=== PATIENT | female | born 1990 | race Caucasian/White ===

== ENCOUNTER 2023-08-26 16:54 | Inpatient (IN) | payer OTHER, SELFPAY ==
[2023-08-26] VITALS (25 sets, daily range): BP systolic 103–133; BP diastolic 48–80; PULSE 72–107; TEMP 36.2–36.4; BMI 39.1
[2023-08-26 17:41] LABS: Basophils Percent Auto 0.3 % (0.2-1.2); Eosinophils Absolute Auto 0.1 K/mm3 (0-0.3); Eosinophils Percent Auto 0.4 % (0-4.4); Hematocrit 34.2 % (37.0-47.0); Hemoglobin 10.6 g/dL (12.0-15.0); Immature Granulocyte Percent A 0.8 % (0-0.5); Lymphocytes Absolute Auto 1.57 K/mm3 (0.9-3.2); Lymphocytes Percent Auto 12.9 % (18.3-44.2); Mean Corpuscular Hemoglobin 25.8 pg (26-34); Mean Corpuscular Volume 83.2 fl (80-100); Monocytes Absolute Auto 0.8 K/mm3 (0.1-0.6); Monocytes Percent Auto 6.7 % (2.6-8.5); Neutrophils Absolute Auto 9.6 K/mm3 (1.3-6.7); Neutrophils Percent Auto 78.9 % (45.5-73.1); Platelet Count Result 213 k/mm3 (150-375); Red Blood Count 4.11 M/mm3 (4.2-5.4); Red Cell Distribution Width 15.6 % (11.5-14.5); White Blood Count 12.2 K/mm3 (4.5-10.0)
--- NOTE | 2023-08-26 17:58 | LDADM ---
This patient, Eula Mcintyre, was admitted to Labor/Delivery/Recovery 107 on 08/26/23 at 16:54. Plans for labor, pain management and were discussed with patient. Patient/family oriented to hospital policies and general routines including ID bracelet, bed and alarms, visiting hours, pain management, procedures, bathroom and other care routines, personal items, smoking policy, room service/diet and guest tray routines, infant security routines, and visiting hours. Patient/Family are encouraged to report perceived risks to care and to ask questions if they do not understand what they are told or what they should do. See OBIX for further documentation.
[2023-08-26] MEDS: miSOPROStol 25 MCG TABLET XX (18:26)
[2023-08-26 18:47] LABS: Glucose Point of Care 108 mg/dl (65-105)
--- NOTE | 2023-08-26 22:28 | WPDANESEPP ---
Anes - Eval Pre Procedure Procedure: Labor epidural Date/Time: 08/26/23 22:28 Surgeon: Ector Preop Diagnosis: Abdominal pain with contractions Pre Op Diagnosis: Induction of Labor Patient Data Age: 33 Gender: F Height: 1.55 m Weight: 94 kg Last Vital Signs Temp 97.6 F 08/26/23 22:00 Pulse 77 08/26/23 22:15 BP 129/77 08/26/23 22:15 Allergies Allergy/AdvReac Type Severity Reaction Status Date / Time cefaclor [From [facility]] Allergy Hives Verified 08/03/23 12:37 codeine Allergy Hives Verified 08/03/23 12:37 Home Medications Medication Instructions Recorded Confirmed Type ferrous sulfate 325 mg (65 mg 325 mg PO DAILY 08/03/23 08/26/23 History iron) tablet insulin lispro 100 unit/mL 5 unit subcut HS 08/03/23 08/26/23 History subcutaneous pen (Humalog KwikPen (U-100) Insulin) prenat.vits,edgardo,wrh-rpub-djtuo 1 tablet PO DAILY 08/03/23 08/26/23 History Laboratory Tests 08/26/23 08/26/23 08/26/23 17:30 18:27 18:43 WBC 12.2 H K/mm3 (4.5-10.0) RBC 4.11 L M/mm3 (4.2-5.4) Hgb 10.6 L g/dL (12.0-15.0) Hct 34.2 L % (37.0-47.0) MCV 83.2 fl (80-100) MCH 25.8 L pg (26-34) MCHC 31.0 L g/dl (32-36) RDW 15.6 H % (11.5-14.5) Plt Count 213 k/mm3 (150-375) MPV 11.0 H fl (7.4-10.4) Immature Gran % (Auto) 0.8 H % (0-0.5) Neut % (Auto) 78.9 H % (45.5-73.1) Lymph % (Auto) 12.9 L % (18.3-44.2) [place] % (Auto) 6.7 % (2.6-8.5) Eos % (Auto) 0.4 % (0-4.4) Baso % (Auto) 0.3 % (0.2-1.2) Lymph # (Auto) 1.57 K/mm3 (0.9-3.2) [place] # (Auto) 0.8 H K/mm3 (0.1-0.6) Eos # (Auto) 0.1 K/mm3 (0-0.3) Baso # (Auto) 0.0 K/mm3 (0.0-0.1) Abs Immat Gran (auto) 0.10 H K/mm3 (0.00-0.031) Absolute Neuts (auto) 9.6 H K/mm3 (1.3-6.7) Absolute Nucleated RBC 0.0 K/mm3 (0.0-0.012) Nucleated RBC % 0.0 % (0.0-0.2) POC Capillary Glucose 108 H mg/dl (65-105) RPR Pending Blood Type A Positive Antibody Screen Negative : gestational age HCG: positive Patient hx anesthesia problems: none Family hx anesthesia problems: none Results Review: All pre-operative results and documents have been reviewed as part of the pre-operative evaluation. [facility] Past Medical History Medical History Anemia Gestational diabetes Obesity (BMI 30-39.9) Family History Family History Sibling Lymphoma Sibling Congenital heart defect Grandparent Diabetes mellitus Social History Social History Smoking status: Never smoker Second hand tobacco smoke exposure: No Substance use: never Do You Feel Safe in your Home?: Yes Lack of Transportation: No Lack of Food: Never True Current Housing: I Have Housing Concerned About Future Housing: No Difficulty Paying Gas/Electric Bills: No Difficulty Paying for Meds: No Currently Unemployed: No Education: Bachelor's Degree Difficulty w/ Childcare or Family Care: No Spiritual care concerns: No Exam Day of Procedure 08/26/23 22:28 Patient weight: obese Heart: regular rate and rhythm Lungs: clear to auscultation Airway: Mallampati scale class II
[2023-08-26] MEDS: OXYTOCIN 30 UNITS/NS 500 ML 30 UNITS/500 ML BAG 6 UNITS IV CONT (23:26)
[2023-08-26] MEDS: LACTATED RINGERS 1,000 ML 125 ML IV CONT (23:27)
[2023-08-26 23:32] LABS: Glucose Point of Care 106 mg/dl (65-105)
[2023-08-27] VITALS (242 sets, daily range): BP systolic 90–184; BP diastolic 36–166; PULSE 64–215; RESP 16; TEMP 36.2–37.6; O2SAT 86–100
[2023-08-27] MEDS: fentaNYL CITRATE INJ (*CRX) 100 MCG/2 ML VIAL 50 MCG IV PUSH ×2 (04:05→04:28)
[2023-08-27] MEDS: LACTATED RINGERS 1,000 ML 999 ML IV CONT (04:31)
[2023-08-27 04:40] LABS: Glucose Point of Care 74 mg/dl (65-105)
[2023-08-27] MEDS: LACTATED RINGERS 1,000 ML 125 ML IV CONT ×2 (05:30→10:33)
[2023-08-27 07:37] LABS: Glucose Point of Care 97 mg/dl (65-105)
[2023-08-27 09:56] LABS: Glucose Point of Care 67 mg/dl (65-105)
[2023-08-27 12:06] LABS: Glucose Point of Care 74 mg/dl (65-105)
[2023-08-27 13:41] LABS: Rapid Plasma Reagin Non-Reactive (NonReactive)
[2023-08-27 14:08] LABS: Glucose Point of Care 92 mg/dl (65-105)
[2023-08-27] MEDS: ACETAMINOPHEN 500 MG TABLET 1000 MG PO (15:19)
--- NOTE | 2023-08-27 15:32 | WPDOBADMIT ---
Obstetrics - Admit Note Admission Note: record reviewed. No pertinent additions to the history and/or any subsequent changes in the physical findings that are not consistent with the expected course of the were found. Additions to the history and/or subsequent changes in the physical findings follow. IOL GDMA-2 insulin at hs, SROM, pitocin, anticipate vaginal delivery
[2023-08-27] MEDS: miSOPROStol 200 MCG TABLET 1000 MCG RECTAL (15:51)
--- NOTE | 2023-08-27 16:02 | PM.OBPRVD ---
OB - Vaginal Delivery Note Procedure Delivery date: 08/27/23 Events: Gestational Diabetes (insulin at hs) Induction method: Per Misoprostol Protocol and Per Pitocin Protocol Delivery monitor: External FHT and Internal FHT Route of delivery: Episiotomy description: None Laceration Description: Perineal - 2nd Degree Delivery repair: vicryl Specimen: Yes Quantitative Blood Loss (ml): 350 Anesthesia type: Epidural Disposition: Floor Baby Date of : 08/27/23 Time of : 15:41 Weeks of gestation at delivery: 39 gender: Female Weight (pounds): 7 Weight (ounces): 11 presentation: vertex position: Left Occiput Anterior Placenta delivery description: Spontaneous Cord Vessel Description: 3 Vessels, Nuchal Cord, Loose (x1), Reduced and Delayed Cord Clamping score one minute: 6 score five minutes: 9 Narrative: mother and baby in stable condition
[2023-08-27] MEDS: OXYTOCIN 30 UNITS/NS 500 ML 30 UNITS/500 ML BAG 125 UNITS IV CONT (16:05)
[2023-08-27] MEDS: WITCH HAZEL 40 PADS 1 PAD TOPICAL (19:20)
[2023-08-27] MEDS: BENZOCAINE 20% AER SPR (*SP) 56 GM CAN 1 SPRAY TOPICAL (19:20)
[2023-08-27] MEDS: IBUPROFEN 600 MG TABLET PO (21:00)
[2023-08-27] MEDS: DOCUSATE SODIUM 100 MG CAPSULE PO (21:32)
--- NOTE | 2023-08-27 22:28 | OBPPTRN ---
08/27/2023 at 1936. Patient transferred to post room #292. Support person present. Oriented to unit, room, information board, rooming in, admission packet and security measures. Patient verbalizes understanding.
[2023-08-28] MEDS: IBUPROFEN 600 MG TABLET PO ×3 (04:39→19:45)
[2023-08-28 05:35] LABS: Hematocrit 28.2 % (37.0-47.0); Hemoglobin 8.5 g/dL (12.0-15.0)
[2023-08-28 08:00] VITALS: BP 104/66; PULSE 84; RESP 18; TEMP 36.7; O2SAT 100
[2023-08-28] MEDS: MULTIVIT/MIN/PREN/FOL AC/IRON TABLET 1 TAB PO (08:13)
[2023-08-28] MEDS: POLYSACCHARIDE IRON COMPLEX 150 MG CAPSULE PO (08:13)
[2023-08-28] MEDS: DOCUSATE SODIUM 100 MG CAPSULE PO (08:14)
--- NOTE | 2023-08-28 11:08 | WPDANLDPN2 ---
Anes-Prog Note L&D Date/Time: 08/28/23 11:08 Comfortable throughout: labor and delivery Neuraxial method: epidural Epidural/Spinal procedure site: clean & non-tender Neuro status: Neuro function grossly intact. Cardiovascular status: normal Respiratory status: normal Airway patency: baseline Mental status: baseline Post-Op hydration status: normal Vital Signs: Last Vital Signs Temp 36.7 C 08/28/23 08:00 Pulse 84 08/28/23 08:00 Resp 18 08/28/23 08:00 BP 104/66 08/28/23 08:00 Pulse Ox 100 08/28/23 08:00 O2 Del Method Room Air 08/27/23 06:26 Pain score (VAS): 0/10 I/O: Intake & Output 08/27/23 08/28/23 08/28/23 23:59 07:59 15:59 Intake Total 240 Output Total 625 Balance -625 240 Post-procedural complaints: none Patient feedback: Patient satisfied with anesthetic care.
--- NOTE | 2023-08-28 12:06 | PM.OBPNVD ---
OB - PN: Subj Subjective Date/time seen: 08/28/23 12:06 Interval history: PPD#1 doing well, pain and bleeding well controlled baby having some emesis with formula, watching blood glucose normal diet emptying bladder without issue OB - PN: Obj Data Labs 08/28/23 04:34 Labs: Laboratory Results - last 24 hr 08/26/23 08/27/23 08/27/23 17:30 11:57 14:06 Hgb Hct POC Capillary Glucose 74 92 RPR Non-reactive 08/28/23 04:34 Hgb 8.5 L Hct 28.2 L POC Capillary Glucose RPR OB - PN A/P Plan day: 1 Plan: routine care Time Spent With Patient Time: Total time spent is greater than 50% in coordination of care (as documented) at patient's floor/unit and/or counseling patient: Review of Systems Review of Systems: All systems reviewed & are unremarkable except as noted in HPI and below Exam Const: General: comfortable and no acute distress Resp: Effort & Inspection: normal respiratory effort
[2023-08-28 12:30] VITALS: BP 109/56; PULSE 100; RESP 16; TEMP 36.2; O2SAT 98
[2023-08-28] MEDS: IRON SUCROSE COMPLEX 300 MG in SODIUM CHLORIDE 0.9% IV 250 ML 177 MG IVPB (15:36)
[2023-08-29 00:30] VITALS: BP 97/58; PULSE 73; RESP 16; TEMP 36.7; O2SAT 100
[2023-08-29] MEDS: IBUPROFEN 600 MG TABLET PO ×2 (03:00→09:30)
[2023-08-29 07:31] VITALS: BP 113/62; PULSE 93; TEMP 36.4; O2SAT 100
--- NOTE | 2023-08-29 07:43 | PM.OBPNVD ---
OB - PN: Subj Subjective Date/time seen: 08/29/23 07:43 Interval history: PPD#1 doing well, pain and bleeding well controlled baby having some emesis with formula, watching blood glucose normal diet emptying bladder without issue OB - PN: Obj Data Labs 08/28/23 04:34 OB - PN A/P Plan day: 2 Plan: routine care and discharge home Time Spent With Patient Time: Total time spent is greater than 50% in coordination of care (as documented) at patient's floor/unit and/or counseling patient:
--- NOTE | 2023-08-29 07:45 | P.DS_ITS ---
DS: Admitting Diagnosis Discharge Date 08/29/23 Admitting Diagnosis IOL, GDMA-2 DS: Discharge Diagnosis Discharge Diagnosis (1) Vaginal delivery: Code(s): O80 - Encounter for full-term uncomplicated delivery Status: Acute OB - DS: Summary OB Procedures : None OB Procedures Intrapartum: Spontaneous Vag Delivery OB Procedures: : None Peripartum Data Laceration Description: Perineal - 2nd Degree Episiotomy description: None Time Spent with Patient Time attestation: Total time spent providing and/or coordinating discharge services: DS: Data Data Completed and Pending Pending studies at discharge: Pending at discharge 08/27/23 16:41 Surgical [PTH] Routine Discharge Plan Discharge Attending physician on discharge: Basim Barney Discharging Clinician: Keri Louis Patient Disposition: Home, Self-Care Activity: pelvic rest Diet: regular Patient Instructions: Antibiotic Form Stand Alone Forms: General Discharge Information Follow-up/Referrals: Keri Louis, CNM [Certified Nurse Professor Of Latin American Studies] - 4 Weeks Discharge Medications: New ibuprofen 600 mg Tablet 600 mg PO Q6H PRN (Reason: Cramping) Qty: 30 0RF Continued ferrous sulfate 325 mg (65 mg iron) Tablet 325 mg PO DAILY #2 Tablet 1 tablet PO DAILY Discontinued insulin lispro [Humalog KwikPen Insulin] 100 unit/mL Insulin Pen 5 unit subcut HS Date of admission: 08/26/23 16:54 Primary Care Provider: UNKNOWN,DOCTOR Admitting Provider: Basim Barney Attending physician on admission: Basim Barney Condition: Stable
[2023-08-29] MEDS: WITCH HAZEL 40 PADS 1 PAD TOPICAL (09:31)
[2023-08-29] MEDS: MULTIVIT/MIN/PREN/FOL AC/IRON TABLET 1 TAB PO (09:31)
[2023-08-29] MEDS: POLYSACCHARIDE IRON COMPLEX 150 MG CAPSULE PO (09:31)
[2023-08-29] MEDS: DOCUSATE SODIUM 100 MG CAPSULE PO (09:31)
--- NOTE | 2023-08-29 09:53 | PC.NURSE ---
On 08/29/23, the student, Wayne Sanchez, provided care and completed [facility] documentation on this patient. I have reviewed the student's documentation and agree with the findings.
--- NOTE | 2023-08-29 12:35 | PC.NURSE ---
Patient viewed the discharge video Mother & Baby Care, The First Two Weeks . Patient was given the opportunity and encouraged to ask questions. Patient verbalized understanding of information shared and has been given the mother/baby guide for home reference.
--- NOTE | 2023-08-29 17:31 | PC.NURSE ---
[id number] Introductions were made and Mother shared her experience so far, plan to feed her , and her plans to pump/feed. Reminded mother to use good handwashing technique to prevent infection. has had appropriate feedings in the last 24 hours meets the outcomes for weight, output, blood sugar and jaundice at this time. Mother states she is confident to continue effectively her at home, when to call for assistance, denies any additional assistance or education at this time. Reinforced understanding of milk production, transition of milk, signs of adequate intake, transition of stool, prevention/relief of engorgement, plugged ducts, mastitis, community resources, and when to call a provider using the resource of the feeding sheet and the mom and baby guide. Mother voiced understanding of the education shared.
[2023-08-30 10:52] VITALS: BP 118/71; PULSE 96; RESP 18; TEMP 36.7; O2SAT 100
== END 2023-08-29 14:15 | disposition home or self-care (01) | DRG 807 ==
LOC: ANHLDR 17:05 → ANHOB2 08-27 20:04
PROVIDERS: Admitting Provider Obstetrics & Gynecology; Referring Provider Advanced Practice Midwife; Visit Provider Obstetrics & Gynecology
DX: O24.424 Gestational diabetes mellitus in childbirth, insulin controlled (principal); Z37.0 Single live birth; O70.1 Second degree perineal laceration during delivery; O69.81X0 Labor and delivery complicated by cord around neck, without compression, not applicable or unspecified; Z3A.39 39 weeks gestation of pregnancy
CPT/HCPCS: 36415; 82948; 85014; 85018; 85025; 86592; 86850; 86900; 86901; 88307; A9270; J1756; J2590; J2795; J3010; J7050; J7120

== ENCOUNTER 2025-02-06 00:10 | Inpatient (IN) | payer OTHER, SELFPAY ==
[2025-02-06] VITALS (84 sets, daily range): BP systolic 73–144; BP diastolic 44–102; PULSE 62–146; RESP 14–16; TEMP 36.7–37.3; O2SAT 84–100; BMI 40.3
--- OUTSIDE RECORDS SUMMARY | 2025-02-06 00:14 | XMS_ITS | Clinical Summary ---
Author Organization [facility] Address [address] [place] [id number] Care Team Providers Care Addictions Recovery Specialist Name Role Phone Jd Harmony Dao Primary Care Provider [phone] Allergies Active Allergy Reactions Criticality Noted Date Comments Cefaclor Hives Medium 11/11/2019 Codeine Hives Medium 11/11/2019 Penicillins Rash Medium 08/16/2016 Medications azithromycin (ZITHROMAX) 250 mg tabletIndication s:Acute non-recurrent maxillary sinusitis,Non-re current acute suppurative otitis media of right ear without spontaneous rupture of tympanic membrane Take 2 tabs (500 mg) by mouth today, than 1 tab (250 mg) daily for 4 days. 6 tablet 01/19/2025 5 Active Problems Problem Noted Date Diagnosed Date Stem cell donor 2019 Estimated Date of Delivery Comme nts Yes 02/06/2025 Encounters Date Type Department Care Team Description 01/19/2025 4:00 PM CDT Office Visit [facility] [place] [address] [place] [id number] Sahara Greenberg, MARGARITO Acute non-recurrent maxillary sinusitis (Primary Dx); Non-recurrent acute suppurative otitis media of right ear without spontaneous rupture of tympanic membrane from Last 3 Months Surgical History Surgery Date Site/Laterality Comments CENTRAL LINE PLACEMENT > 5 YEARS 01/09/2020 N/A Social History Tobacco Use Types Packs/Day Years Used Date Smoking Tobacco: Never Smokeless Tobacco: Never Tobacco Cessation:Counseling Given: Not Answered Estimated Date of Delivery Comme nts Yes 02/06/2025 Sex and Gender Information Value Date Recorded Sex Assigned at Not on file Legal Sex Female 9:57 AM CREDIT RATING CHECKER Gender Identity Not on file Sexual Orientation Not on file Obstetrics History Para Term AB IAB SAB Ectopic Multiple Livin g Live Births 1 Date Outcome GA Total Labor Labor/2nd/3rd Weight Sex Type Anes PTL Blanche A1 A5 Name Clin Current Last Filed Vital Signs Vital Sign Reading Time Taken Comments Blood Pressure 120/76 01/19/2025 4:03 PM CDT Pulse 78 01/19/2025 4:03 PM CDT Temperature 36.1 C (97 F) 01/19/2025 4:03 PM CDT Respiratory Rate 18 01/19/2025 4:03 PM CDT Oxygen Saturation 98% 01/19/2025 4:03 PM CDT Inhaled Oxygen Concentration - - Weight 95.7 kg (211 lb) 01/19/2025 4:03 PM CDT Height 152.4 cm (5') 01/19/2025 4:03 PM CDT Body Mass Index 41.21 01/19/2025 4:03 PM CDT Plan of Treatment Health Maintenance Due Date Last Done Comments Cervical Cancer Screening 1991 Depression Screening 1991 Hepatitis C Screening 1991 Varicella Vaccines (1 of 2 - 13+ 2-dose series) 2004 Hepatitis B Screening 2009 Regular Well Visit/Exam 18-64 2009 Covid-19 Vaccine ( - 2023-2 5 season) 2024 02/27/2023, 02/23/2021, 02/02/2021 Influenza Vaccine (#1) 2025 , 05/25/2023 DTaP/Tdap/Td Vaccine (2 - Td or Tdap) 08/01/2033 08/01/2023 HPV Vaccines Aged Out No longer eligi ble based on patient's age to complete this topic Pneumococcal vaccine <65 Aged Out No longer eligible based on patient's age to complete this topic Insurance [id number] HMO/PPO Address: [address] [place], [place] [id number] [facility] CHOICE PLUS [facility] HMO/PPO Address: [address] [place] [id number] [employer] [facility] [place] [address] Advance Directives For more information, please contact: [phone] * Full Code (Latest Code Status on File) Date Activated Date Inactivated Comments 01/09/2020 8:07 AM 01/09/2020 1:37 PM Care Teams Addictions Recovery Specialist Relationship Specialty Start Date End Date Harmony Miles PCP - General Maintenance Of Way Clerk 12/26/23
--- OUTSIDE RECORDS SUMMARY | 2025-02-06 00:14 | XMS_ITS | Referral Summary ---
Author Organization [facility] Address [facility] [place] [address] Care Team Providers Care Photo Mask Cleaner Name Role Phone Harmony Miles Primary Care Provider [phone] Encounters Date Type Department Care Team Description 01/19/2025 4:00 PM CDT Office Visit [facility] [place] [address] [place] [phone] Sahara Greenberg, MARGARITO Acute non-recurrent maxillary sinusitis (Primary Dx); Non-recurrent acute suppurative otitis media of right ear without spontaneous rupture of tympanic membrane from Last 3 Months Allergies Active Allergy Reactions Criticality Noted Date [...] Date of Delivery Comme nts Yes 02/06/2025 Social History Tobacco Use Types Packs/Day Years Used Date Smoking Tobacco: Never Smokeless Tobacco: Never Tobacco Cessation:Counseling Given: Not Answered Estimated Date of Delivery Comme nts Yes 02/06/2025 Sex and Gender Information Value Date Recorded Sex Assigned at Not on file Legal Sex Female 9:57 AM AUTHORIZER Gender Identity Not on file Sexual Orientation Not on file Last Filed Vital Signs Vital Sign Reading [...] 01/19/2025 4:03 PM CDT Plan of Treatment Not on file Insurance [facility] CHOICE PLUS [facility] HMO/PPO Address: [facility] [address] [place] [address] [facility] CHOICE PLUS [facility] HMO/PPO Address: [address] [address] [place] [address] [facility] [employer] SIGNATURE [employer] [facility] C[facility] Advance Directives For more information, please contact: [phone] * Full Code (Latest Code Status on File) Date Activated Date Inactivated Comments 01/09/2020 8:07 AM 01/09/2020 1:37 PM Care Teams Photo Mask Cleaner Relationship Specialty Start Date End Date Harmony Miles PCP - General Tents Assembler 12/26/23
--- OUTSIDE RECORDS SUMMARY | 2025-02-06 00:15 | XMS_ITS | Clinical Summary ---
[facility] Address [address] [facility], [facility] [address] [place] [address] Phone Care Team Providers Care Grind Operator Name Role Phone Provider, None Unavailable Unavailable Harmony Miles GUN STRIPER, DAIRY SCIENCE TEACHER Primary Care Provider + Allergies Active Allergy Reactions Criticality Noted Date Comments Cefaclor Rash 09/25/2018 Cefaclor Rash 05/25/2023 Codeine Rash 09/25/2018 Penicillins Rash Medium 08/16/2016 Medications tamsulosin (FLOMAX) 0.4 MG Capsule Take 1 Cap by mouth daily. 10 Cap 9 Active Additional Information Patient not taking.Reported on 10/13/2024 ondansetron (ZOFRAN) 4 MG Tablet Take 1 Tab by mouth every 8 hours as needed for Nausea - 1st line. 10 Tab 9 Active Additional Information Patient not taking.Reported on 10/13/2024 Vit-Fe Fumarate-FA ( VITAMIN PO)Indications: state, incidental Take by mouth. Acti ve famotidine (PEPCID) 10 MG TabletIndicatio ns:Heartburn Take 10 mg by mouth 2 times daily. Active methylPREDNISol one (MEDROL DOSPACK) 4 MG Tablet Therapy Pack Use as per instructions on package. 21 Tablet Active Additional Information Patient not taking.Reported on 10/13/2024 Active Problems Problem Noted Date Diagnosed Date Insulin controlled gestation al diabetes mellitus (GDM) during , antepartum 05/21/2024 Gastroesophageal reflux disease 05/21/2024 Comments Yes Immunizations Immunization Administration Dates Next Due Influenza Vaccine, Quadrivalent, PF 05/25/2023 Influenza,Split Virus,Trivalent,Injectable,PF RSV, Bivalent, Protein Subun it Rsvpref, Diluent Reconstit (Abrysvo) 08/01/2023 TDAP Vaccine 08/01/2023 Family History Medical History Relation Name Comments Kidney Stones Father Cancer Maternal Aunt Nallely Cosme Breast Cancer Asthma Mother Leora Tomas Thyroid Disease Mother Leora Tomas Congestive Heart Failure Other Diabetes Paternal Grandfather Buzz Rey Cancer Sister 1 Charo Estrella Lymphoma Leukemia/Lymphoma Sister 1 Charo Estrella No Known Problems Sister 2 Relation Name Status Comments Father Alive Maternal Aunt Nallely Cosme Mother Leora Tomas Alive Other Paternal Grandfather Buzzvinny Bradfordann Sister 1 Charo Estrella Sister 2 Alive Social History Tobacco Use Types Packs/Day Years Used Date Smoking Tobacco: Never Smokeless Tobacco: Never Alcohol Use Standard Drinks/Week Comments Not Currently 0 (1 standard drink = 0.6 oz pur e alcohol) [facility] Utilities Answer Date Recorded In the past 12 months has e [place], gas, oil, or water [employer] threatened to shut off services in your home? No 05/21/2024 Social Connection and Isolation Panel Answer Date Recorded In a typical week, how many times do you talk on the phone with family, friends, or neighbors? More than three times a week 05/21/2024 How often do you get togethe r with friends or relatives? Three times a week 05/21/2024 How often do you attend chur ch or denominational services? 1 to 4 times per year 05/21/2024 Do you belong to any clubs o r organizations such as oriental orthodox groups, unions, fraternal or athletic groups, or school groups? Yes 05/21/2024 How often do you attend meet ings of the clubs or organizations you belong to? 1 to 4 times per year 05/21/2024 Are you , , di vorced, , never , or living with a partner? 05/21/2024 AUDIT-C Answer Date Recorded Q1: How often do you have a drink containing alc ohol? Monthly or less 05/21/2024 Q2: How many drinks containi ng alcohol do you have on a typical day when you are drinking? 1 or 2 05/21/2024 Q3: How often do you have si x or more drinks on one occasion? Never 05/21/2024 Overall Financial Resource Strain (CARDIA) Answe r Date Recorded How hard is it for you to pa y for the very basics like food, housing, medical care, and heating? Not hard at all 05/21/2024 PHQ-2 Answer Date Recorded Total Score - Questions 1-9 0 09/21 [facility] - Occupational Stress Questionnaire Answer Date Recorded Do you feel stress - tense, restless, nervous, or anxious, or unable to sleep at night because your mind is troubled all the time - these days? Only a little 05/21/2024 Exercise Vital Sign Answer Date Recorde d On average, how many days pe r week do you engage in moderate to strenuous exercise (like a brisk walk)? 4 days 05/21/2024 On average, how many minutes do you engage in exercise at this level? 30 min 05/21/2024 Hunger Vital Sign Answer Date Recorded Within the past 12 months, y ou worried that your food would run out before you got the money to buy more. Never true 05/21/20 24 Within the past 12 months, t he food you bought just didn't last and you didn't have money to get more. Never true 05/21/2024 PRAPARE - Transportation Answer Date Re corded In the past 12 months, has l ack of transportation kept you from medical appointments or from getting medications? No 04/24 In the past 12 months, has l ack of transportation kept you from meetings, work, or from getting things needed for daily living? No 05/21/2024 Housing Stability Vital Sign Answer Cholo e Recorded In the last 12 months, was t here a time when you were not able to pay the mortgage or rent on time? No 05/21/2024 Number of Times Moved in the Last Year Not on fi le 05/21/2024 At any time in the past 12 m [facility], were you homeless or living in a jail (including now)? No 05/21/2024 Sexually Active Control Partners Comments Yes Male Condom, None Male pt current ly Comments Yes Sex and Gender Information Value Date Recorded Sex Assigned at Not on file Legal Sex Female 10:00 AM FACILITY SUPERVISOR Gender Identity Not on file Sexual Orientation Not on file Last Filed Vital Signs Vital Sign Reading Time Taken Comments Blood Pressure 120/68 10/13/2024 8:18 AM CDT Pulse 97 10/13/2024 8:18 AM CDT Temperature 36.6 C (97.8 F) 10/13/2024 8:18 AM CDT Respiratory Rate 16 10/13/2024 8:18 AM CDT Oxygen Saturation 97% 10/13/2024 8:18 AM CDT Inhaled Oxygen Concentration - - Weight 92.8 kg (204 lb 8 oz) 10/13/2024 8:18 AM CDT Height 154.9 cm (5' 1) 10/13/2024 8:18 AM CDT Body Mass Index 38.64 10/13/2024 8:18 AM CDT Plan of Treatment Upcoming Encounters Date Type Department Care Team (Late st Contact Info) Description 05/27/2025 9:00 AM FACILITY SUPERVISOR Office Visit [facility] - [facility] [address] [place] [address] Harmony Miles, GUN STRIPER, DAIRY SCIENCE TEACHER [address] [place] [address] Health Maintenance Due Date Last Done Comments Human Papillomavirus (HPV) Immunization (1 - 3-dose series) 2006 Hepatitis B Immunization (1 of 3 - 19+ 3-dose series) 2010 Pap Smear 2012 Cervical Cancer Screening (CCS) 2021 HPV/Cotest 2021 SARS-COV-2 Immunization ( season) 2024 02/27/2023, 02/23/2021, 02/02/2021 Diabetes: Hemoglobin A1c 02/12/2025 025, 02/16/2023 Influenza Immunization (#1) 03/23/202504/24, 05/25/2023 Hepatitis C Virus (HCV) Screening 08/15/2025 08/15/2024, 02/16/2023 Td Immunization Every 10 Yea rs (Adults With 1 Tdap) 08/01/2033 08/01/2023 DTaP/Tdap/Td Immunization Discontinued 08/01/2023 Respiratory Syncytial Virus (RSV) Immunization (Adult) Completed 08/01/2023 TdaP Immunization Discontinued 08/01/2023 Meningococcal Immunization (ACWY) Aged Out No longer eligible based on patient's age to complete this topic Pneumococcal Immunization Combined Aged Out No longer eligible based on patient's age to complete this topic Rotavirus Immunization Aged Out No lo nger eligible based on patient's age to complete this topic [place] [address] [place] [address] Care Teams Grind Operator Relationship Specialty Start Date End Date Harmony Miles, GUN STRIPER, DAIRY SCIENCE TEACHER [address] [place] [address] PCP - General Advanced Practice Nurse 05/21/24 Provider, None [place] 05/25/23
--- OUTSIDE RECORDS SUMMARY | 2025-02-06 00:15 | XMS_ITS | Data Portability ---
Author Organization [facility] Address [address] [place] [address] [place] [address] Assessment Encounter Date Assessment Date Assessment LastModified by Organization Details LastModified Time 02/04/2025 02/04/2025 Patient is 38___weeks . Discussed plan. Not available 02/04/2025 11:19:09 Plan of Treatment Reminders Order Date Submit Date Provider Last Modified By Organization Details Last Modified Time Details Appointments INDUCTI ON 2024 12:01A M Keri Louis CNM Not available Not available Not available U/S OB BPP 2024 08:30A M ULTRASOUND Not available Not available Not available NST 2024 09:00A M NST SCHEDULE Not available Not available Not available OB ROUTINE 2024 09:30A M Keri Louis CNM Not available Not available Not available Lab None recorde d. Referral None recorde d. Procedures None recorde d. Surgeries None recorde d. Imaging non-str ess test 2024 025 [email or web address] [address], [address], [place], [address], 02/05/2025 23:27:47 US, obstetr ic, biophys ical profile + non-str ess test 2024 025 [email or web address] [address], [address], [place], [address], 02/04/2025 10:42:03 non-str ess test 2024 025 [email or web address] [address], [address], [place], [address], 01/31/2025 05:13:25 US, [facility] ic, follow- up 2024 025 [email or web address] [address], [address], [place], [address], 01/29/2025 20:41:29 US, obstetr ic, biophys ical profile + non-str ess test 2024 025 [email or web address] [address], [address], [place], [address], 01/29/2025 20:41:29 Medication Orders None recorde d. Patient TargetsNo targets recorded. Patient InstructionsNo instructions recorded. Reason for Referral None Reported. Results Created Date Observation Date Name Description Value Unit Range Abnormal Flag Note LastModifiedBy Organization Detail LastModifiedTime 01/15/20 25 01/14/2025 CULTU RE: GROUP B STREP SCREE N, REFLE X SUSCE PTIBI LITY result report SEE RESULT S BELOW Test: Cultu re: Group B Strep , Refle x Susce ptibi lity ([facility] ) Speci men Sourc e: Vagin a/Rec josh Speci men Type: Vagin al/Re ctal Speci men Date: 2024 1057 Resul t Date: 2024 1358 Resul t Statu s: Final resul t Abnor mal: No Resul ting Lab: [facility] [address] [facility] [address] Tel: CULTU RE ----- ----- ----- --- No Group B strep isola brunilda at 2 days (tobias ctive broth enhan cemen t) Not Available [facility] (Lab) [address], [place], [address], 01/17/2025 15:01:45 01/08/20 25 01/07/2025 US, obste tric, follo w-up No observ ation record ed. [email or web address] [facility] [address], [place], [address], 01/07/2025 18:43:25 01/08/20 25 01/07/2025 US, obste tric, follo w-up No observ ation record ed. [email or web address] [address], [place], [address], 01/08/2025 14:23:29 01/15/20 25 01/14/2025 US, obste tric, bioph ysica l profi le + non-s tress test No observ ation record ed. [email or web address] [facility] [address], [place], [address], 01/14/2025 09:58:41 01/15/20 25 01/14/2025 US, obste tric, bioph ysica l profi le + non-s tress test No observ ation record ed. [email or web address] [address], [place], [address], 01/14/2025 09:57:44 01/15/20 25 01/14/2025 non-s tress test No observ ation record ed. [email or web address] [facility] [address], [place], [address], 01/14/2025 18:46:39 01/22/20 25 01/21/2025 US, obste tric, bioph ysica l profi le + non-s tress test No observ ation record ed. [email or web address] [facility] [address], [place], [address], 01/21/2025 17:49:51 01/22/20 25 01/21/2025 US, obste tric, follo w-up No observ ation record ed. [email or web address] [address], [place], [address], 01/26/2025 09:31:17 01/22/20 25 01/21/2025 non-s tress test No observ ation record ed. [facility] [address], [place], [address], 01/21/2025 18:22:09 01/29/20 25 01/28/2025 US, obstbetty barroso, follo w-up No observ ation record ed. [email or web address] [facility] [address], [place], [address], 01/28/2025 13:19:00 01/29/20 25 01/28/2025 US, cuca barroso, bioph ysica l profi le + non-s tress test No observ ation record ed. [email or web address] [address], [place], [address], 01/30/2025 14:20:56 01/29/20 25 01/28/2025 US, cuca barroso, follo w-up No observ ation record ed. [email or web address] [address], [place], [address], 01/30/2025 14:21:23 01/29/20 25 01/28/2025 non-s tress test No observ ation record ed. [email or web address] [facility] [address], [place], [address], 01/28/2025 14:29:19 02/05/20 25 02/04/2025 US, cuca tric, bioph ysica l profi le + non-s tress test No observ ation record ed. [email or web address] [address], [place], [address], 02/04/2025 10:05:05 02/05/20 25 02/04/2025 US, obste tric, bioph ysica l profi le + non-s tress test No observ ation record ed. [email or web address] [address], [place], [address], 02/04/2025 15:41:18 02/06/20 25 02/05/2025 non-s tress test No observ ation record ed. [email or web address] [facility] [address], [place], [address], 02/05/2025 11:59:19 Result Notes None recorded. Problems Name Problem SNOMED Code Status Onset Date Resolution Date Notes Provider Name and Address Organization Details Recorded Time Gestatio nal diabetes mellitus 47761502 Completed Antenata l Testing, Serial Growth 5units nph at hs Mendel Parada [facility] 4 11:16:44 Past pregnanc y history of gestatio nal diabetes mellitus 392935593 Active Insulin Dependen t Brigido Barney MD [address], [place], [address], [facility] 5 15:35:32 Body mass index 30+ - obesity 287131844 Active Charo Rene [facility] [place], [facility] 5 16:59:11 Pregnanc y 58316982 Completed 202208/31/2023 Nancy Patel [facility] [place], [facility] 5 14:43:31 Obesity 088915246 Completed 2022 37 wk ante testing Mendel Parada [facility] [place] [facility] 4 11:16:44 Pregnanc y 74885224 Active 2024 Nancy Patel [facility] [place] [facility] 5 14:43:31 Glucose level above referenc e range 15027017 Active 2024 elevated 1hr gct checking bs - history GDM Deena apple [facility] 5 18:12:32 Gestatio nal diabetes mellitus complica ting pregnanc y 8384777263 9106 Active 2024 Charo Rene [facility] 5 11:13:52 Gestatio nal diabetes mellitus complica ting pregnanc y 3976574936 9106 Active 2024 Charo Rene [facility] [place], [facility] 5 11:13:52 Large for gestatio n age fetus 955813672 Active 2024 EFW 94% AC >99% Deena Orosco [facility] 5 14:18:53 Problem Notes None recorded. Procedures Surgical History Date Name Laterality Status Provider Name and Address Organization Details Recorded Time 03/26/20 24 Date of Last Pap Smear completed [facility] 03/26/2024 11:24:46 07/23/19 11 extraction of wisdom tooth completed [facility] 10/29/2024 11:18:19 07/23/19 10 methicillin resistant Staphylococcus aureus swab completed [facility] 02/02/2023 12:05:42 Imaging Results None recorded. Procedure Notes None recorded. Medical Equipment None Reported. Allergies Allergen ID Allergen Name Allergen Category Reaction Reaction Severity Criticality Documentation Date Start Date Code Code System Note Provider Name and Address Organization Details Recorded Time 59693 Ceclor medicatio n fever rash Not available Not available Not available 03/28/202237786 5 RxNorm Lana field [facility] 2 15:51:42 73601 codeine medicatio n fever rash Not available Not available Not available 03/28/2022 2670 RxNorm Lana field [facility] 2 15:51:48 Medications Name Sig Start Date Stop Date Status Note LastModified by Organization Details LastModified Time doxycycline hyclate 100 mg capsule 03/26 completed Not Available Not Available Not Available famotidine 10 mg tablet Take 1 tablet every day by oral route. 11/25 completed Not Available Not Available Not Available azithromyci n 250 mg tablet TAKE 2 TABLETS BY MOUTH FOR 1 DAY THEN TAKE 1 TABLET BY MOUTH DAILY FOR 4 DAYS 01/28 completed Not Available Not Available Not Available amoxicillin 500 mg tablet TAKE 1 TABLET BY MOUTH EVERY 12 HOURS FOR 10 DAYS 01/28 completed Not Available Not Available Not Available pantoprazol e 20 mg tablet,arron yed release TAKE 1 TABLET BY MOUTH EVERY DAY 03/26 completed Not Available Not Available Not Available pantoprazol e 40 mg tablet,arron yed release TAKE 1 TABLET BY MOUTH EVERY DAY active Not Available Not Available No t Available progesteron e micronized 200 mg capsule TAKE 1 CAPSULE BY MOUTH EVERY DAY AT BEDTIME 06/06 completed Not Available Not Available Not Available ibuprofen 600 mg tablet TAKE 1 TABLET BY MOUTH EVERY 6 HOURS NEEDED FOR CRAMPING 09/25 completed Not Available Not Available Not Available methylpredn isolone 4 mg tablets in a dose pack FOLLOW PACKAGE DIRECTION S 11/25 completed Not Available Not Available Not Available nitrofurant oin monohydrate /macrocryst als 100 mg capsule 08/01 completed Not Available Not Available Not Available Vitamin 03/26 completed Not Available Not Available Not Available + DHA active Not Available Not Available Not Available OneTouch Verio test strips USE TO TEST BLOOD SUGAR FOUR TIMES DAILY active Not Available Not Available No t Available Humulin N NPH U-100 Insulin KwikPen 100 unit/mL (3 mL) subcutaneou s INJECT 5 UNITS SUBCUTANE OUS AT HOUR OF SLEEP 09/25 completed Not Available Not Available Not Available OneTouch Verio Flex Meter DIRECTED FOUR TIMES DAILY active Not Available Not Available No t Available BD Malinda 2nd Gen Pen Needle 32 gauge x 5/32 TO BE USED WITH HUMULIN ONCE DAILY 09/25 completed Not Available Not Available Not Available OneTouch Delica Plus Lancet 30 gauge USE TO TEST BLOOD SUGAR FOUR TIMES DAILY active Not Available Not Available No t Available ID NOW COVID-19 Test Kit TEST DIRECTED TODAY 03/28 completed Not Available Not Available Not Available Vitals Date Recorded Body weight Systolic And Diastolic Provider Name and Address Organization Details Last Updated DateTime 01/28/2025 79295.95064 g 114/83 mm[Hg] Nancy Jorge [facility] 01/28/2025 10:43:20 Date Recorded Body height Provider Name an d Address Organization Details Last Updated DateTime 01/28/2025 154.94 cm ASIA Coreas [facility] 01/28/2025 14:27:51 Date Recorded Body weight Body height Systolic And Diastolic Provider Name and Address Organization Details Last Updated DateTime 02/04/2025 46371.7671 8 g 154.94 cm 120/80 mm[Hg] Laura Navarrete [facility] 02/04/2025 10:42:45 Social History Question Answer Notes LastModified by Organizat ion Details LastModified Time Tobacco Smoking Status Never Smoker Sil Krause [email or web address], [facility] 08/01/2023 09:34:16 If You Are , What Was Your Level Of Alcohol Consumption Prior To ? Occasional [email or web address] Information not available 08/01/2023 Are You Blind Or Do You Have Difficulty Seeing? No Information n ot available 03/28/2022 What Is Your Level Of Caffeine Consumption? Moderate [email or web address] Information not available 02/16/2023 How Much Tobacco Do You Chew? None Information not available 02/02/2023 In The 14 Days Before Symptom Onset, Have You Had Close Contact With A Laboratory-confirm ed COVID-19 While That Case Was Ill? No [email or web address] Information n ot available 02/02/2023 In The 14 Days Before Symptom Onset, Have You Had Close Contact With A Person Who Is Under Investigation For COVID-19 While That Person Was Ill? No [email or web address] Information not available 02/02/2023 Have You Been To An Area Known To Be High Risk For COVID-19? No [email or web address] Information not available 02/02/2023 Are You Deaf Or Do You Have Serious Difficulty Hearing? No Information not available 03/28/2022 What Type Of Diet Are You Following? REGULAR Information n ot available 03/28/2022 What Is The Highest Grade Or Level Of School You Have Completed Or The Highest Degree You Have Received? IG59134-9 [email or web address] Information not available 02/02/2023 Are There Any Guns Present In Your Home? No [email or web address] Information not available 02/02/2023 Do You Use Protection During Sex? No [email or web address] Information not available 02/02/2023 Do You Use Your Seat Belt Or Car Seat Routinely? Yes [email or web address] Information not available 02/02/2023 Do You Have Smoke And Carbon Monoxide Detectors In Your Home? Yes [email or web address] Information not available 02/02/2023 At What Age Did You Start Smoking Tobacco? 0 [email or web address] Information not available 03/16/2023 How Much Tobacco Do You Smoke? No [email or web address] Information not available 02/02/2023 Do You Use Sunscreen Routinely? Yes [email or web address] Information not available 02/02/2023 How Many Years Have You Smoked Tobacco? 0 [email or web address] Information not available 03/16/2023 Have You Used IV Drugs? No [email or web address] Information not available 02/02/2023 Do You Have Difficulty Walking Or Climbing Stairs? No [email or web address] Information not available 08/01/2023 Sex: Unknown Functional Status Question Answer Note LastModified by Organizat ion Details LastModified Time Do you use any illicit or recreational drugs? No [email or web address] Information not available 02/02/2023 What is your level of alcohol consumption? None [email or web address] Information not available 03/16/2023 Are you able to walk? [email or web address] Information not available 03/28/2022 Are you able to care for yourself? 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 No [email or web address] Information not available 08/01/2023 What is your exercise level? Occasional [email or web address] Information not available 02/02/2023 Mental Status Question Answer Note LastModified by Organization D etails LastModified Time Do you feel stressed (tense, restless, nervous, or anxious, or unable to sleep at night)? FY47618-1 [email or web address] Information not available 03/16/2023 Family History Relationship Description Onset Age of this Age Resolved Age Notes LastModified by Organization Details LastModified Time Mother Asthma [email or web address] Not availabl e 03/28/2022 15:53:18 Mother Disorder of thyroid gland [email or web address] Not available 12/2021 15:54:13 Paternal Aunt Malignant tumor of breast 45 [email or web address] Not available 03/26 11:25:20 Paternal Grandfather Diabetes mellitus [email or web address] Not available 12/2021 15:53:38 Paternal Grandmother Malignant neoplasm of ovary [email or web address] Not available 12/2021 15:53:51 Sister Malignant lymphoma 33 deceas ed Not available 12/26/2024 09:16:16 Medical History Condition Response Allergies (Food, seasonal, environmental ) N Other N Drug/Latex Allergies/Reactions N Blood Transfusion N Breast Cancer N Dermatologic Disorders N Lung Disease N Defects or Inherited Disease N Breast Problem N Gestational Diabetes Y Hematologic disorders N Anesthesia Complications N History of STI N Deep Vein Thrombosis N Polycystic ovary syndrome N Anxiety Disorder N Autoimmune disease N Arthritis N Polyps N Infertility N Acid Reflux (GERD) Y History of abnormal pap N Cancer N Varicosities N Stroke N Neurologic/Epilepsy N Endometriosis N High Cholesterol N Fibromyalgia N Headaches N Kidney Disease N Heart Problems N Thyroid Problems N Kidney or Bladder Problems N GI Problems N Eating Disorder N Anemia N Art (IVF or FET) N Psychiatric Illness N Ovarian Cancer N Diabetes Y Pulmonary (TB, Asthma) N Hepatitis/Liver Disease N No Past Medical History N Eczema N Urinary Tract Infection N Abuse/Domestic Violence N Asthma N Trauma/Violence N Depression/ depression N Heart Disease N Pre-Eclampsia N Hypertension N Osteoporosis N Thrombophilias N Gynecological History Statement/Question Response Flow Moderate Date of Last Mammogram N Was last menstrual period normal Y STIs/STDs N HPV Vaccine N Duration of Flow (days) 6 Current Control Method Age at First Child 33 Sexually Active? Y Menses Monthly Y Date of DEXA bone scan Date of Last Pap Smear 03/26/2024 Sexual Problems? N LMP Unknown N Obstetrics History GPAL:G 3 P 1 0 1 1 Type Value Full Term 1 Spontaneous 1 Living 1 Total 3 Past Encounters Encounter ID Performer Location Encounter Start Date Encounter Closed Date Diagnosis/Indication Diagnosis SNOMED-CT Code Diagnosis ICD10 Code Diagnosis Note [id number] ADDIS Topete [facility] [address] [address] 03/28/2022 15:17:53 03/28/2022 16:51:07 Gynecologic examination 56110353 Z01.419 Take Calcium with Vitamin D 1200mg daily if not receiving in daily diet. It is strongly advised to have an annual flu shot and up can obtain at most pharmacies . If you have not had a TDap shot in the last 10 years you should obtain one as well. Discussed with patient & provided with informatio n regarding Gardisil vaccine to prevent the 4 strains for HPV that cause cervical cancer if under age 26. Encourage safe sexual practices, to use condoms and limit partners if not already in a monogamous relationsh ip. Do monthly self breast exams. Have mammogram yearly or every other year depending on family history. BRCA testing is now available for patients with strong genetic history of female cancer. If interested contact the office. Engage in daily exercise of low impact aerobic exercise 45-60 minutes 4-5 times weekly. Avoid tobacco and illicit drugs as well as using moderation with alcohol intake less than 1-2 8 oz beverages daily. This lifestyle behavior pattern will lead to less health conditions and longer life span. If BMI greater than 25 weight watchers or dietary consult advised. Patient received above instructio ns, and questions have been answered. If you have any questions please call or respond to this email. Patient was made aware of the patient portal and may obtain a paper copy of today's plan if desired. WWEBC - withdrawal , considerin g soon. Encouraged daily PNV starting nowNo hx of abnormal papsPap done todaySTI testing declinedPa tient recently lost sister to lymphoma at the age of 35 - patient was stem cell donor prior to sister passingEnc ouraged patient to establish care with a [facility]PRTC in 1 year or sooner if needed [id number] Brigido Barney MD [facility] [address],[place] [address] 10/17/2022 10:45:02 10/17/2022 11:31:23 Threatened miscarriage [id number] O20.0 Z3A.01 [id number] Brigido Barney MD [facility] [address],[place] [address] 01/05/2023 15:11:35 01/05/2023 16:02:15 Uncertain viability of 240058599 O36.80X9 Z3A.01 [id number] Brigido Barney MD [facility] [address],[place] [address] 02/02/2023 11:22:41 02/02/2023 14:56:06 [id number] [facility] [address],[place] [address] 02/02/2023 11:23:16 02/02/2023 12:32:05 Amenorrhea 31669214 N91.2 [id number] Brigido Barney MD [facility] [address],[place] [address] 02/16/2023 11:24:45 02/16/2023 12:48:00 screening 625926089 Z36.82 [id number] Brigido Barney MD [facility] [address],[place] [address] 02/16/2023 11:25:49 02/16/2023 12:47:52 Routine care 974562786 Z34.90 [id number] [facility] [address],[place] [address] 03/16/2023 15:47:56 03/16/2023 16:15:22 Routine care 938125779 Z34.92 Gestation period, 15 weeks 5620984 Z3A.15 [id number] Brigido Barney MD [facility] [address],[place] [address] 04/11/2023 16:23:44 04/11/2023 17:50:32 screening for malformation 678950998 Z36.3 [id number] [facility] [address],[place] [address] 04/11/2023 16:25:05 04/11/2023 17:58:28 Gastroesophageal reflux disease 509677606 K21.9 [id number] Brigido Barney MD [facility] [address],[place] [address] 05/09/2023 09:33:13 05/09/2023 10:30:27 screening 356628356 Z36.2 Z3A.24 [id number] [facility] [address],[place] [address] 05/09/2023 09:33:42 05/09/2023 11:09:35 Routine care 468325917 Z34.92 [id number] Keri Louis [facility] [address],[place] [address] 06/06/2023 09:44:48 06/06/2023 10:21:09 Urinary symptoms 608040780 R39.9 Routine an tenatal care 935634573 Z34.92 [id number] Brigido Barney MD [facility] [address],[place] [address] 06/13/2023 11:28:11 06/13/2023 17:25:35 Gestational diabetes mellitus 27125453 O24.410 Pt here for diet teaching. Went over ideal ranges for FBS and pp BS. Went over carb counting and carb ranges for each meal/snack . Gave ideas for foods to eat for meals/snac ks. Discussed drink options and to avoid soda and juice. Told pt she can go online to ADA for meal options or to look up low carb meal recipes online for ideas as well. Pt picked up glucometer last night and fasting level was 116 and after breakfast was 145. Told pt to continue checking BS QID and adjusting diet to follow low carb diet to try to keep BS within normal range. Pt aware if sugars aren't controlled by diet we would discuss starting insulin. Went over NST schedule with pt and importance of keeping these appts and checking BS for her and baby's health. Pts questions were answered and pt verbalized understand ingRose villar RN [id number] Keri Louis [facility] [address],[place] [address] 06/22/2023 15:49:11 06/22/2023 16:34:28 Routine care 232825954 Z34.92 [id number] Brigido Barney MD [facility] [address],[place] [address] 06/22/2023 16:31:33 06/22/2023 17:08:01 Gestational diabetes mellitus 90408523 O24.410 O99.213 Z3A.29 Pt here for diet teaching. Went over ideal ranges for FBS and pp BS. Went over carb counting and carb ranges for each meal/snack . Gave ideas for foods to eat for meals/snac ks. Discussed drink options and to avoid soda and juice. Told pt she can go online to ADA for meal options or to look up low carb meal recipes online for ideas as well. Pt picked up glucometer last night and fasting level was 116 and after breakfast was 145. Told pt to continue checking BS QID and adjusting diet to follow low carb diet to try to keep BS within normal range. Pt aware if sugars aren't controlled by diet we would discuss starting insulin. Went over NST schedule with pt and importance of keeping these appts and checking BS for her and baby's health. Pts questions were answered and pt verbalized understand ing. jian RN [id number] Brigido Barney MD [facility] [address],[place] [address] 07/06/2023 13:54:29 07/06/2023 14:42:58 Gestational diabetes mellitus 71553118 O24.410 O99.213 Z3A.29 Pt here for diet teaching. Went over ideal ranges for FBS and pp BS. Went over carb counting and carb ranges for each meal/snack . Gave ideas for foods to eat for meals/snac ks. Discussed drink options and to avoid soda and juice. Told pt she can go online to ADA for meal options or to look up low carb meal recipes online for ideas as well. Pt picked up glucometer last night and fasting level was 116 and after breakfast was 145. Told pt to continue checking BS QID and adjusting diet to follow low carb diet to try to keep BS within normal range. Pt aware if sugars aren't controlled by diet we would discuss starting insulin. Went over NST schedule with pt and importance of keeping these appts and checking BS for her and baby's health. Pts questions were answered and pt verbalized understand ing. AURA villar [id number] Brigido Barney MD [facility] [address],[place] [address] 07/06/2023 13:54:49 07/06/2023 15:21:47 Gestational diabetes mellitus 27664342 O24.410 O99.213 Z3A.31 Pt here for diet teaching. Went over ideal ranges for FBS and pp BS. Went over carb counting and carb ranges for each meal/snack . Gave ideas for foods to eat for meals/snac ks. Discussed drink options and to avoid soda and juice. Told pt she can go online to [employer] for meal options or to look up low carb meal recipes online for ideas as well. Pt picked up glucometer last night and fasting level was 116 and after breakfast was 145. Told pt to continue checking BS QID and adjusting diet to follow low carb diet to try to keep BS within normal range. Pt aware if sugars aren't controlled by diet we would discuss starting insulin. Went over NST schedule with pt and importance of keeping these appts and checking BS for her and baby's health. Pts questions were answered and pt verbalized understand ing. AURA villar [id number] Keri Louis [facility] [address],[place] [address] 07/06/2023 13:55:06 07/06/2023 15:46:53 Routine care [id number] Z34.92 [id number] Keri Louis [facility] [address],[place] [address] 07/06/2023 15:55:23 07/06/2023 16:14:45 [id number] Brigido Barney MD [facility] [address],[place] [address] 07/11/2023 09:24:24 07/11/2023 12:36:47 Gestational diabetes mellitus [id number] O24.414 O99.213 Z3A.32 Pt here for diet teaching. Went over ideal ranges for FBS and pp BS. Went over carb counting and carb ranges for each meal/snack . Gave ideas for foods to eat for meals/snac ks. Discussed drink options and to avoid soda and juice. Told pt she can go online to [employer] for meal options or to look up low carb meal recipes online for ideas as well. Pt picked up glucometer last night and fasting level was 116 and after breakfast was 145. Told pt to continue checking BS QID and adjusting diet to follow low carb diet to try to keep BS within normal range. Pt aware if sugars aren't controlled by diet we would discuss starting insulin. Went over NST schedule with pt and importance of keeping these appts and checking BS for her and baby's health. Pts questions were answered and pt verbalized understand ing. AURA villar [id number] Brigido Barney MD [facility] [address],[place] [address] 07/11/2023 09:24:42 07/11/2023 12:36:33 Gestational diabetes mellitus class A2 [id number] O24.414 Z3A.32 [id number] Keri Louis [facility] [address],[place] [address] 07/11/2023 09:24:59 07/11/2023 11:12:01 Routine care [id number] Z34.92 [id number] Brigido Barney MD [facility] [address],[place] [address] 07/18/2023 08:59:49 07/18/2023 09:39:29 Gestational diabetes mellitus 64694250 O24.414 O99.213 Z3A.33 Pt here for diet teaching. Went over ideal ranges for FBS and pp BS. Went over carb counting and carb ranges for each meal/snack . Gave ideas for foods to eat for meals/snac ks. Discussed drink options and to avoid soda and juice. Told pt she can go online to [employer] for meal options or to look up low carb meal recipes online for ideas as well. Pt picked up glucometer last night and fasting level was 116 and after breakfast was 145. Told pt to continue checking BS QID and adjusting diet to follow low carb diet to try to keep BS within normal range. Pt aware if sugars aren't controlled by diet we would discuss starting insulin. Went over NST schedule with pt and importance of keeping these appts and checking BS for her and baby's health. Pts questions were answered and pt verbalized understand ing. jian RN [id number] Brigido Barney MD [facility] [address],[place] [address] 07/18/2023 09:00:20 07/18/2023 10:39:52 Gestational diabetes mellitus class A2 [id number] O24.414 Z3A.33 [id number] Keri Louis [facility] [address],[place] [address] 1 07/18/2023 09:00:39 07/18/2023 10:28:11 Routine care [id number] Z34.92 [id number] Brigido Barney MD [facility] [address],[place] [address] 07/25/2023 09:33:26 07/25/2023 10:08:27 Gestational diabetes mellitus 50798805 O24.414 O99.213 Z3A.34 Pt here for diet teaching. Went over ideal ranges for FBS and pp BS. Went over carb counting and carb ranges for each meal/snack . Gave ideas for foods to eat for meals/snac ks. Discussed drink options and to avoid soda and juice. Told pt she can go online to [employer] for meal options or to look up low carb meal recipes online for ideas as well. Pt picked up glucometer last night and fasting level was 116 and after breakfast was 145. Told pt to continue checking BS QID and adjusting diet to follow low carb diet to try to keep BS within normal range. Pt aware if sugars aren't controlled by diet we would discuss starting insulin. Went over NST schedule with pt and importance of keeping these appts and checking BS for her and baby's health. Pts questions were answered and pt verbalized understand ing. jian RN [id number] Brigido Barney MD [facility] [address],[place] [address] 07/25/2023 09:34:11 07/25/2023 11:44:03 Gestational diabetes mellitus [id number] O24.414 O99.213 Z3A.34 Pt here for diet teaching. Went over ideal ranges for FBS and pp BS. Went over carb counting and carb ranges for each meal/snack . Gave ideas for foods to eat for meals/snac ks. Discussed drink options and to avoid soda and juice. Told pt she can go online to [employer] for meal options or to look up low carb meal recipes online for ideas as well. Pt picked up glucometer last night and fasting level was 116 and after breakfast was 145. Told pt to continue checking BS QID and adjusting diet to follow low carb diet to try to keep BS within normal range. Pt aware if sugars aren't controlled by diet we would discuss starting insulin. Went over NST schedule with pt and importance of keeping these appts and checking BS for her and baby's health. Pts questions were answered and pt verbalized understand ing. AURA villar [id number] REGIS MCELROY MD [facility] [address],[place] [address] 07/25/2023 09:35:56 07/25/2023 11:44:38 Gestational diabetes mellitus [id number] O24.414 [id number] Brigido Barney MD [facility] [address],[place] [address] 08/01/2023 09:33:43 08/01/2023 15:13:12 Gestational diabetes mellitus class A2 [id number] O24.414 Z3A.35 [id number] Brigido Barney MD [facility] [address],[place] [address] 08/01/2023 09:34:10 08/01/2023 10:20:05 Gestational diabetes mellitus [id number] O24.414 Z3A.35 Pt here for diet teaching. Went over ideal ranges for FBS and pp BS. Went over carb counting and carb ranges for each meal/snack . Gave ideas for foods to eat for meals/snac ks. Discussed drink options and to avoid soda and juice. Told pt she can go online to [employer] for meal options or to look up low carb meal recipes online for ideas as well. Pt picked up glucometer last night and fasting level was 116 and after breakfast was 145. Told pt to continue checking BS QID and adjusting diet to follow low carb diet to try to keep BS within normal range. Pt aware if sugars aren't controlled by diet we would discuss starting insulin. Went over NST schedule with pt and importance of keeping these appts and checking BS for her and baby's health. Pts questions were answered and pt verbalized understand ing. AURA villar [id number] Keri Louis [facility] [address],[place] [address] 08/01/2023 09:34:30 08/01/2023 11:10:20 Routine care [id number] Z34.92 [id number] Keri Louis [facility] [address],[place] [address] 08/15/2023 09:40:54 08/15/2023 11:14:10 Routine care [id number] Z34.92 [id number] Keri Louis [facility] [address],[place] [address] 1 08/08/2023 09:39:03 08/08/2023 11:37:08 Routine care [id number] Z34.92 [id number] Brigido Barney MD [facility] [address],[place] [address] 08/08/2023 09:39:37 08/08/2023 10:55:42 Gestational diabetes mellitus 01367174 O24.414 Z3A.35 Pt here for diet teaching. Went over ideal ranges for FBS and pp BS. Went over carb counting and carb ranges for each meal/snack . Gave ideas for foods to eat for meals/snac ks. Discussed drink options and to avoid soda and juice. Told pt she can go online to [employer] for meal options or to look up low carb meal recipes online for ideas as well. Pt picked up glucometer last night and fasting level was 116 and after breakfast was 145. Told pt to continue checking BS QID and adjusting diet to follow low carb diet to try to keep BS within normal range. Pt aware if sugars aren't controlled by diet we would discuss starting insulin. Went over NST schedule with pt and importance of keeping these appts and checking BS for her and baby's health. Pts questions were answered and pt verbalized understand ing. AURA villar [id number] REGIS MCELROY MD [facility] [address],[place] [address] 08/08/2023 09:39:56 08/08/2023 10:30:29 Gestational diabetes mellitus [id number] O24.414 O99.213 Z3A.36 [id number] Brigido Barney MD [facility] [address],[place] [address] 08/15/2023 09:41:22 08/15/2023 10:16:22 Gestational diabetes mellitus 78038715 O24.414 O99.210 Z3A.37 Pt here for diet teaching. Went over ideal ranges for FBS and pp BS. Went over carb counting and carb ranges for each meal/snack . Gave ideas for foods to eat for meals/snac ks. Discussed drink options and to avoid soda and juice. Told pt she can go online to [employer] for meal options or to look up low carb meal recipes online for ideas as well. Pt picked up glucometer last night and fasting level was 116 and after breakfast was 145. Told pt to continue checking BS QID and adjusting diet to follow low carb diet to try to keep BS within normal range. Pt aware if sugars aren't controlled by diet we would discuss starting insulin. Went over NST schedule with pt and importance of keeping these appts and checking BS for her and baby's health. Pts questions were answered and pt verbalized understand ingRose villar RN [id number] Brigido Barney MD [facility] [address],[place] [address] 08/15/2023 09:41:47 08/15/2023 11:10:37 Gestational diabetes mellitus class A2 [id number] O24.414 Z3A.37 [id number] Brigido Barney MD [facility] [address],[place] [address] 08/22/2023 09:26:42 08/22/2023 09:46:39 Gestational diabetes mellitus 45024265 O24.414 O99.210 Z3A.38 Pt here for diet teaching. Went over ideal ranges for FBS and pp BS. Went over carb counting and carb ranges for each meal/snack . Gave ideas for foods to eat for meals/snac ks. Discussed drink options and to avoid soda and juice. Told pt she can go online to [employer] for meal options or to look up low carb meal recipes online for ideas as well. Pt picked up glucometer last night and fasting level was 116 and after breakfast was 145. Told pt to continue checking BS QID and adjusting diet to follow low carb diet to try to keep BS within normal range. Pt aware if sugars aren't controlled by diet we would discuss starting insulin. Went over NST schedule with pt and importance of keeping these appts and checking BS for her and baby's health. Pts questions were answered and pt verbalized understand ing. AURA villar [id number] Brigido Barney MD [facility] [address],[place] [address] 08/22/2023 09:27:23 08/22/2023 13:51:48 Gestational diabetes mellitus class A2 [id number] O24.414 Z3A.38 [id number] Keri Louis [facility] [address],[place] [address] 08/22/2023 09:27:51 08/22/2023 11:17:23 Routine care 070158714 Z34.92 [id number] Keri Louis [facility] [address],[place] [address] 09/26/2023 16:12:09 09/26/2023 16:52:51 care [id number] Z39.2 doing well, f/u 6 mo wwe [id number] [facility] [address],[place] [address] 03/26/2024 10:47:09 03/26/2024 11:49:39 Gynecologic examination [id number] Z01.419 [id number] Brigido Barney MD [facility] [address],[place] [address] 08/15/2024 13:48:43 08/15/2024 14:35:57 screening 802982875 Z36.82 Z3A.14 [id number] Brigido Barney MD [facility] [address],[place] [address] 08/15/2024 13:49:18 08/15/2024 15:48:19 Routine care 841222757 Z34.90 [id number] Brigido Barney MD [facility] [address],[place] [address] 08/29/2024 11:45:17 08/29/2024 13:32:49 Routine care [id number] Z34.90 [id number] Brigido Barney MD [facility] [address],[place] [address] 10/01/2024 15:20:18 10/01/2024 16:38:25 screening for malformation [id number] Z36.3 Z3A.20 [id number] Keri Louis [facility] [address],[place] [address] 10/01/2024 15:20:46 10/01/2024 17:36:08 Gestation period, 20 weeks 48902549 Z3A.20 Routine an tenatal care [id number] Z34.92 [id number] [facility] [address],[place] [address] 10/29/2024 10:49:12 10/29/2024 11:50:59 Gestation period, 24 weeks 877938941 Z3A.24 Gastroesop hageal reflux disease 725984166 K21.9 [id number] Keri Louis [facility] [address],[place] [address] 11/25/2024 09:27:23 11/25/2024 10:06:55 Gestation period, 28 weeks [id number] Z3A.28 [id number] Brigido Barney MD [facility] [address],[place] [address] 12/09/2024 09:47:28 12/09/2024 10:33:12 Gestational diabetes mellitus 95197934 O24.410 O99.210 O43.113 Z3A.30 Pt here for diet teaching. Went over ideal ranges for FBS and pp BS. Went over carb counting and carb ranges for each meal/snack . Gave ideas for foods to eat for meals/snac ks. Discussed drink options and to avoid soda and juice. Told pt she can go online to [employer] for meal options or to look up low carb meal recipes online for ideas as well. Pt picked up glucometer last night and fasting level was 116 and after breakfast was 145. Told pt to continue checking BS QID and adjusting diet to follow low carb diet to try to keep BS within normal range. Pt aware if sugars aren't controlled by diet we would discuss starting insulin. Went over NST schedule with pt and importance of keeping these appts and checking BS for her and baby's health. Pts questions were answered and pt verbalized understand ing. jian RN [id number] Keri Louis CNM [facility] [address],[place] [address] 12/09/2024 09:47:45 12/09/2024 10:47:35 Gestation period, 30 weeks 63622359 Z3A.30 Gestationa l diabetes mellitus 25876444 O24.419 [id number] [facility] [address],[place] [address] 12/26/2024 09:16:12 12/26/2024 12:04:01 Gestation period, 33 weeks 07198315 Z3A.33 [id number] Brigido Barney MD [facility] [address],[place] [address] 01/07/2025 09:53:23 01/07/2025 10:46:59 Gestational diabetes mellitus 41518035 O24.410 O99.213 O36.63X0 Z3A.34 Pt here for diet teaching. Went over ideal ranges for FBS and pp BS. Went over carb counting and carb ranges for each meal/snack . Gave ideas for foods to eat for meals/snac ks. Discussed drink options and to avoid soda and juice. Told pt she can go online to [employer] for meal options or to look up low carb meal recipes online for ideas as well. Pt picked up glucometer last night and fasting level was 116 and after breakfast was 145. Told pt to continue checking BS QID and adjusting diet to follow low carb diet to try to keep BS within normal range. Pt aware if sugars aren't controlled by diet we would discuss starting insulin. Went over NST schedule with pt and importance of keeping these appts and checking BS for her and baby's health. Pts questions were answered and pt verbalized understand ing. AURA villar [id number] Keri Louis [facility] [address],[place] [address] 01/07/2025 09:53:46 01/07/2025 14:40:48 Gestation period, 34 weeks [id number] Z3A.34 [id number] Brigido Barney MD [facility] [address],[place] [address] 01/14/2025 09:05:23 01/14/2025 09:29:50 Gestational diabetes mellitus 75837601 O24.410 O99.210 Z3A.35 Pt here for diet teaching. Went over ideal ranges for FBS and pp BS. Went over carb counting and carb ranges for each meal/snack . Gave ideas for foods to eat for meals/snac ks. Discussed drink options and to avoid soda and juice. Told pt she can go online to [employer] for meal options or to look up low carb meal recipes online for ideas as well. Pt picked up glucometer last night and fasting level was 116 and after breakfast was 145. Told pt to continue checking BS QID and adjusting diet to follow low carb diet to try to keep BS within normal range. Pt aware if sugars aren't controlled by diet we would discuss starting insulin. Went over NST schedule with pt and importance of keeping these appts and checking BS for her and baby's health. Pts questions were answered and pt verbalized understand ing. AURA villar [id number] [facility] [address],[place] [address] 01/14/2025 09:05:33 01/15/2025 09:12:42 Gestational diabetes mellitus 68851383 O24.419 [id number] Keri Louis [facility] [address],[place] [address] 01/14/2025 09:06:22 01/14/2025 10:38:07 Gestation period, 35 weeks 42605535 Z3A.35 [id number] Keri Louis [facility] [address],[place] [address] 01/21/2025 16:55:46 01/22/2025 05:44:44 Gestational diabetes mellitus complicating [id number] 9106 O24.419 [id number] Brigido Barney MD [facility] [address],[place] [address] 01/21/2025 16:57:04 01/21/2025 17:46:21 Gestational diabetes mellitus 18366168 O24.410 Z3A.36 Pt here for diet teaching. Went over ideal ranges for FBS and pp BS. Went over carb counting and carb ranges for each meal/snack . Gave ideas for foods to eat for meals/snac ks. Discussed drink options and to avoid soda and juice. Told pt she can go online to [employer] for meal options or to look up low carb meal recipes online for ideas as well. Pt picked up glucometer last night and fasting level was 116 and after breakfast was 145. Told pt to continue checking BS QID and adjusting diet to follow low carb diet to try to keep BS within normal range. Pt aware if sugars aren't controlled by diet we would discuss starting insulin. Went over NST schedule with pt and importance of keeping these appts and checking BS for her and baby's health. Pts questions were answered and pt verbalized understand ing. AURA villar [id number] Keri Louis [facility] [address],[place] [address] 01/21/2025 16:57:38 01/22/2025 08:29:33 Gestation period, 36 weeks 19512447 Z3A.36 Gestationa l diabetes mellitus 16359944 O24.419 Infection of ear 3306885 01 H66.90 [id number] Brigido Barney MD [facility] [address],[place] [address] 01/28/2025 09:37:30 01/28/2025 10:06:37 Gestational diabetes mellitus 56076283 O24.410 O36.63X0 O99.213 Z3A.37 Pt here for diet teaching. Went over ideal ranges for FBS and pp BS. Went over carb counting and carb ranges for each meal/snack . Gave ideas for foods to eat for meals/snac ks. Discussed drink options and to avoid soda and juice. Told pt she can go online to [employer] for meal options or to look up low carb meal recipes online for ideas as well. Pt picked up glucometer last night and fasting level was 116 and after breakfast was 145. Told pt to continue checking BS QID and adjusting diet to follow low carb diet to try to keep BS within normal range. Pt aware if sugars aren't controlled by diet we would discuss starting insulin. Went over NST schedule with pt and importance of keeping these appts and checking BS for her and baby's health. Pts questions were answered and pt verbalized understand ing. ARUA villar [id number] Keri Louis [facility] [address],[place] [address] 01/28/2025 09:37:49 01/28/2025 15:08:10 Gestational diabetes mellitus 10150949 O24.410 [id number] [facility] [address],[place] [address] 01/28/2025 09:38:18 01/28/2025 11:33:43 Gestation period, 37 weeks 72657462 Z3A.37 [id number] Brigido Barney MD [facility] [address],[place] [address] 02/04/2025 09:38:18 02/04/2025 10:06:46 Gestational diabetes mellitus 62526298 O24.410 O99.213 Z3A.38 Pt here for diet teaching. Went over ideal ranges for FBS and pp BS. Went over carb counting and carb ranges for each meal/snack . Gave ideas for foods to eat for meals/snac ks. Discussed drink options and to avoid soda and juice. Told pt she can go online to [employer] for meal options or to look up low carb meal recipes online for ideas as well. Pt picked up glucometer last night and fasting level was 116 and after breakfast was 145. Told pt to continue checking BS QID and adjusting diet to follow low carb diet to try to keep BS within normal range. Pt aware if sugars aren't controlled by diet we would discuss starting insulin. Went over NST schedule with pt and importance of keeping these appts and checking BS for her and baby's health. Pts questions were answered and pt verbalized understand ing. AURA villar [id number] Keri Louis [facility] [address],[place] [address] 02/04/2025 09:38:35 02/05/2025 12:10:05 Gestational diabetes mellitus 05234343 O24.410 [id number] Keri Louis [facility] [address],[place] [address] 02/04/2025 09:38:48 02/04/2025 11:39:39 Gestation period, 38 weeks 22048296 Z3A.38 Health Concerns Section Related Observation LastModified by Organization Detai ls LastModified Time None Recorded Concern Status LastModified by Organization Details LastModified Time None Recorded Advance Directives Directive None Recorded Payers Insurance Date Sequence Insurance Name Policy Number Policy Hernandez Covered Member ID Hernandez Member ID Guarantor Name 12/26/2024 1 Indeed Eula Rey [id number] Eula Mcintyre 02/01/2025 1 Indeed [id number] Eula Mcintyre [id number] Eula Mcintyre OBGyn Episode Ob Episode Information Episode Created Date Number of Fetuses Patient Bloodtype Patient rh Status Prepregnancy Weight lbs Domestic Partner Domestic Partner Phone Father Name Landscaping Supervisor Status 10/24/19 23 1 CLOSED Fetus Data First Name Last Name Admitted to NICU Weight (g) Sex Living Outcome Pediatric Complications Fetus ID Race Codes Race Delivery Type , Spontane ous [id number] Enrico Calculation Initial Enrico Date Initial Exam Date Initial Exam Provider Initial Ultrasound Date Last Menstrual Period Date Ultra Sound Weeks Gestation 0 Eighteen To Twenty Week Enrico Update Ultra Sound Date Fundal Height At Umbil Quickening Date Ultra Sound Latest Weeks Gestation Final Enrico Confirmed By Final Enrico Confirmed Date Final Enrico Date Ultra Sound Latest Days Gestation 0 0 Menstrual History Last Menstrual Date Menses Monthly On Bcp Conception Prior Menses Frequency Hcg Plus Date Menarche Onset Age Delivery Information Delivery Date Delivery Type Labor Anesthesia Weeks Gestation Incision Type Labor Labor Length Hrs Delivered By Post Complications Tubal Sterilization Discharge Date Comments 3 Miscarri a ge Discharge Information Feeding Method Contraceptive Method Maternal HG B and HCT Levels Ob Episode Information Episode Created Date Number of Fetuses Patient Bloodtype Patient rh Status Prepregnancy Weight lbs Domestic Partner Domestic Partner Phone Father Name Landscaping Supervisor Status 08/15/19 25 1 A Positive Jefry OPEN Fetus Data First Name Last Name Admitted to NICU Weight (g) Sex Living Outcome Pediatric Complications Fetus ID Race Codes Race Delivery Type [id number] Problems Problem Notes Circumvallate placenta - Nisreen wth at 32wks Problem Name Start Date End Date Resolution Snomed Code Not e Gestational diabetes mellitus complicating 01/07/2025 [id number] Glucose level above reference range 11/27/2024 [id number] elevated 1hr gct checking bs - history GDM Body mass index 30+ - obesity 358387208 Large for gestation age fetus 01/08/[id number] EFW 94% AC >99% Past history of gestational diabetes mellitus 413412650 Insulin Depende nt Enrico Calculation Initial Enrico Date Initial Exam Date Initial Exam Provider Initial Ultrasound Date Last Menstrual Period Date Ultra Sound Weeks Gestation 08/15/2024 08/15/2024 14 Eighteen To Twenty Week Enrico Update Ultra Sound Date Fundal Height At Umbil Quickening Date Ultra Sound Latest Weeks Gestation Final Enrico Confirmed By Final Enrico Confirmed Date Final Enrico Date Ultra Sound Latest Days Gestation 0 [email or web address] 08/15/2024 02/14/20 25 0 Pre- Flowsheet Flowsheet Date 08/15/2024 Siu Score Blood Edema Fundus Height Fundus Units Glucose Ketones Leukocytes Nitrite Labor Signs Protein Cervic Dilation Cervic Effacement Cervic Station Type Weight in lbs Pre/Post Dialysis Refused Weight 202.590127574362 BP Diastolic BP Location Tested BP Systolic BP Type 80 L arm 122 sitting Fetus Heart Rate Present A 144 Fetus Movement A No Comments this patient is 34 y/o year- old multiparous female at 14 weeks' gestation who presents for initial care. She has a history of term vaginal births. Her medical, surgical, obstetric history is unremarkable. She is vaccinated. She was given precautions recommendations for . We talked about vaccines in . Talked about care in detail. She is having genetic testing. She had a normal 12 week ultrasound. To begin routine care. Flowsheet Date 08/29/2024 Siu Score Blood Edema Fundus Height Fundus Units Glucose Ketones Leukocytes Nitrite Labor Signs Protein Cervic Dilation Cervic Effacement Cervic Station Type Weight in lbs Pre/Post Dialysis Refused 203.05859451199 BP Diastolic BP Location Tested BP Systolic BP Type 75 L arm 116 sitting Fetus Heart Rate Present A 150 Present Fetus Movement A Yes Comments no complaints, no problems, routine care, no contractions, no vaginal bleeding, no loss of fluid, no cramping Flowsheet Date 10/01/2024 Siu Score Blood Edema Fundus Height Fundus Units Glucose Ketones Leukocytes Nitrite Labor Signs Protein Cervic Dilation Cervic Effacement Cervic Station Type Weight in lbs Pre/Post Dialysis Refused BP Diastolic BP Location Tested BP Systolic BP Type Fetus Heart Rate Present Fetus Movement Comments Flowsheet Date 10/01/2024 Siu Score Blood Edema Fundus Height Fundus Units Glucose Ketones Leukocytes Nitrite Labor Signs Protein Cervic Dilation Cervic Effacement Cervic Station neg none Type Weight in lbs Pre/Post Dialysis Refused 203.94422013663 BP Diastolic BP Location Tested BP Systolic BP Type 76 118 Fetus Heart Rate Present Fetus Movement A Yes Comments doing well, circumvallate pl acenta plan 32 week growth, anatomy complete girl! doing well education and precautions f/u 4 weeks Flowsheet Date 10/29/2024 Siu Score Blood Edema Fundus Height Fundus Units Glucose Ketones Leukocytes Nitrite Labor Signs Protein Cervic Dilation Cervic Effacement Cervic Station neg none Type Weight in lbs Pre/Post Dialysis Refused Weight 206.973988629035 BP Diastolic BP Location Tested BP Systolic BP Type 76 112 Fetus Heart Rate Present Fetus Movement A Yes Comments Patient states that has had some heartburn. tried pepcid daily, tums will rx protonix, +FM, doing well precautions and education f/u 4 weeks with GCT Flowsheet Date 11/25/2024 Siu Score Blood Edema Fundus Height Fundus Units Glucose Ketones Leukocytes Nitrite Labor Signs Protein Cervic Dilation Cervic Effacement Cervic Station neg none Type Weight in lbs Pre/Post Dialysis Refused Weight 209.956461997100 BP Diastolic BP Location Tested BP Systolic BP Type 75 118 Fetus Heart Rate Present Fetus Movement A Yes Comments patient is having BH contrac tions and hip pain. +FM, reviewed precautions and education, GCT today f/u US next week hx circumvallate placenta hx GDM await results Flowsheet Date 12/09/2024 Siu Score Blood Edema Fundus Height Fundus Units Glucose Ketones Leukocytes Nitrite Labor Signs Protein Cervic Dilation Cervic Effacement Cervic Station Type Weight in lbs Pre/Post Dialysis Refused BP Diastolic BP Location Tested BP Systolic BP Type Fetus Heart Rate Present Fetus Movement Comments Flowsheet Date 12/09/2024 Siu Score Blood Edema Fundus Height Fundus Units Glucose Ketones Leukocytes Nitrite Labor Signs Protein Cervic Dilation Cervic Effacement Cervic Station neg none Type Weight in lbs Pre/Post Dialysis Refused Weight 206.515167661620 BP Diastolic BP Location Tested BP Systolic BP Type 75 122 Fetus Heart Rate Present Fetus Movement A Yes Comments Patient is having contractio ns. reviewed precautions, +FM, susan breech, plan spinning babies reviewed blodd sugars wnl, efw 76%, education done f/u 2 weeks Flowsheet Date 12/26/2024 Siu Score Blood Edema Fundus Height Fundus Units Glucose Ketones Leukocytes Nitrite Labor Signs Protein Cervic Dilation Cervic Effacement Cervic Station neg none 36 cm Type Weight in lbs Pre/Post Dialysis Refused 207.172146791580 BP Diastolic BP Location Tested BP Systolic BP Type 62 97 Fetus Heart Rate Present A 145 Present Fetus Movement A Yes Comments Patient is having pressure a nd vein pain in leg. reviewed educations and precautions, blood sugar log wnl, +FM, f/u 2 weeks with us Flowsheet Date 01/07/2025 Siu Score Blood Edema Fundus Height Fundus Units Glucose Ketones Leukocytes Nitrite Labor Signs Protein Cervic Dilation Cervic Effacement Cervic Station Type Weight in lbs Pre/Post Dialysis Refused BP Diastolic BP Location Tested BP Systolic BP Type Fetus Heart Rate Present Fetus Movement Comments Flowsheet Date 01/07/2025 Siu Score Blood Edema Fundus Height Fundus Units Glucose Ketones Leukocytes Nitrite Labor Signs Protein Cervic Dilation Cervic Effacement Cervic Station neg trace Type Weight in lbs Pre/Post Dialysis Refused Weight 210.426415771360 BP Diastolic BP Location Tested BP Systolic BP Type 75 118 Fetus Heart Rate Present Fetus Movement A Yes Comments Patient is having some press ure, swelling, foot swelling, contractions and discharge. reviewed us with dr. mcelroy then with pt, blood sugars wnl f/u one week precautions and education Flowsheet Date 01/14/2025 Siu Score Blood Edema Fundus Height Fundus Units Glucose Ketones Leukocytes Nitrite Labor Signs Protein Cervic Dilation Cervic Effacement Cervic Station Type Weight in lbs Pre/Post Dialysis Refused BP Diastolic BP Location Tested BP Systolic BP Type Fetus Heart Rate Present Fetus Movement Comments Flowsheet Date 01/14/2025 Siu Score Blood Edema Fundus Height Fundus Units Glucose Ketones Leukocytes Nitrite Labor Signs Protein Cervic Dilation Cervic Effacement Cervic Station Type Weight in lbs Pre/Post Dialysis Refused BP Diastolic BP Location Tested BP Systolic BP Type Fetus Heart Rate Present Fetus Movement Comments Flowsheet Date 01/14/2025 Siu Score Blood Edema Fundus Height Fundus Units Glucose Ketones Leukocytes Nitrite Labor Signs Protein Cervic Dilation Cervic Effacement Cervic Station Type Weight in lbs Pre/Post Dialysis Refused Weight 209.086170089347 BP Diastolic BP Location Tested BP Systolic BP Type 71 L arm 113 sitting Fetus Heart Rate Present Fetus Movement Comments +FM, education and precautio ns, reviewed bs log wnl. bpp 10/10 f/u one week Flowsheet Date 01/21/2025 Siu Score Blood Edema Fundus Height Fundus Units Glucose Ketones Leukocytes Nitrite Labor Signs Protein Cervic Dilation Cervic Effacement Cervic Station Type Weight in lbs Pre/Post Dialysis Refused BP Diastolic BP Location Tested BP Systolic BP Type Fetus Heart Rate Present Fetus Movement Comments Flowsheet Date 01/21/2025 Siu Score Blood Edema Fundus Height Fundus Units Glucose Ketones Leukocytes Nitrite Labor Signs Protein Cervic Dilation Cervic Effacement Cervic Station Type Weight in lbs Pre/Post Dialysis Refused BP Diastolic BP Location Tested BP Systolic BP Type Fetus Heart Rate Present Fetus Movement Comments Flowsheet Date 01/21/2025 Siu Score Blood Edema Fundus Height Fundus Units Glucose Ketones Leukocytes Nitrite Labor Signs Protein Cervic Dilation Cervic Effacement Cervic Station Type Weight in lbs Pre/Post Dialysis Refused 213.464209894193 BP Diastolic BP Location Tested BP Systolic BP Type 77 L arm 127 sitting Fetus Heart Rate Present Fetus Movement A Yes Comments +FM, bpp 10/10, education an d precautions IOL scheduled f/uone week Flowsheet Date 01/28/2025 Siu Score Blood Edema Fundus Height Fundus Units Glucose Ketones Leukocytes Nitrite Labor Signs Protein Cervic Dilation Cervic Effacement Cervic Station Type Weight in lbs Pre/Post Dialysis Refused BP Diastolic BP Location Tested BP Systolic BP Type Fetus Heart Rate Present Fetus Movement Comments Flowsheet Date 01/28/2025 Siu Score Blood Edema Fundus Height Fundus Units Glucose Ketones Leukocytes Nitrite Labor Signs Protein Cervic Dilation Cervic Effacement Cervic Station Type Weight in lbs Pre/Post Dialysis Refused BP Diastolic BP Location Tested BP Systolic BP Type Fetus Heart Rate Present Fetus Movement Comments Flowsheet Date 01/28/2025 Siu Score Blood Edema Fundus Height Fundus Units Glucose Ketones Leukocytes Nitrite Labor Signs Protein Cervic Dilation Cervic Effacement Cervic Station Type Weight in lbs Pre/Post Dialysis Refused 212.09456281039 BP Diastolic BP Location Tested BP Systolic BP Type 83 L arm 114 sitting Fetus Heart Rate Present Fetus Movement A Yes Comments reviewed US with dr. mcelroy, offered pt a primary c/s pt would like to try IOL reviewed US results, +FM, blood sugars wnl, cervix 3/50/-2, education and precautions f/u one week Flowsheet Date 02/04/2025 Siu Score Blood Edema Fundus Height Fundus Units Glucose Ketones Leukocytes Nitrite Labor Signs Protein Cervic Dilation Cervic Effacement Cervic Station Type Weight in lbs Pre/Post Dialysis Refused BP Diastolic BP Location Tested BP Systolic BP Type Fetus Heart Rate Present Fetus Movement Comments Flowsheet Date 02/04/2025 Siu Score Blood Edema Fundus Height Fundus Units Glucose Ketones Leukocytes Nitrite Labor Signs Protein Cervic Dilation Cervic Effacement Cervic Station Type Weight in lbs Pre/Post Dialysis Refused BP Diastolic BP Location Tested BP Systolic BP Type Fetus Heart Rate Present Fetus Movement Comments Flowsheet Date 02/04/2025 Siu Score Blood Edema Fundus Height Fundus Units Glucose Ketones Leukocytes Nitrite Labor Signs Protein Cervic Dilation Cervic Effacement Cervic Station Type Weight in lbs Pre/Post Dialysis Refused 214.391979288856 BP Diastolic BP Location Tested BP Systolic BP Type 80 L arm 120 sitting Fetus Heart Rate Present Fetus Movement A Yes Comments bpp 05/01 doing well +FM, so me contractions, IOL sunday Menstrual History Last Menstrual Date Menses Monthly On Bcp Conception Prior Menses Frequency Hcg Plus Date Menarche Onset Age Delivery Information Delivery Date Delivery Type Labor Anesthesia Weeks Gestation Incision Type Labor Labor Length Hrs Delivered By Post Complications Tubal Sterilization Discharge Date Comments Discharge Information Feeding Method Contraceptive Method Maternal HG B and HCT Levels Ob Episode Information Episode Created Date Number of Fetuses Patient Bloodtype Patient rh Status Prepregnancy Weight lbs Domestic Partner Domestic Partner Phone Father Name Landscaping Supervisor Status 02/17/20 23 1 A Positive 202 CLOSED Fetus Data First Name Last Name Admitted to NICU Weight (g) Sex Living Outcome Pediatric Complications Fetus ID Race Codes Race Delivery Type 3288.54 2 M true Full Term [email or web address] Vaginal Delivery Problems Problem Notes Problem Name Start Date End Date Resolution Snomed Code Not e Gestational diabetes mellitus [id number] Testi ng, Serial Growth 5units nph at hs Obesity 02/26/2023 [id number] wk ant e testing Enrico Calculation Initial Enrico Date Initial Exam Date Initial Exam Provider Initial Ultrasound Date Last Menstrual Period Date Ultra Sound Weeks Gestation 09/01/2023 02/16/2023 02/02/2023 9 Eighteen To Twenty Week Enrico Update Ultra Sound Date Fundal Height At Umbil Quickening Date Ultra Sound Latest Weeks Gestation Final Enrico Confirmed By Final Enrico Confirmed Date Final Enrico Date Ultra Sound Latest Days Gestation 0 [email or web address] 02/16/2023 09/01/19 24 0 Pre- Flowsheet Flowsheet Date 02/16/2023 Siu Score Blood Edema Fundus Height Fundus Units Glucose Ketones Leukocytes Nitrite Labor Signs Protein Cervic Dilation Cervic Effacement Cervic Station Type Weight in lbs Pre/Post Dialysis Refused BP Diastolic BP Location Tested BP Systolic BP Type Fetus Heart Rate Present Fetus Movement Comments Flowsheet Date 02/16/2023 Siu Score Blood Edema Fundus Height Fundus Units Glucose Ketones Leukocytes Nitrite Labor Signs Protein Cervic Dilation Cervic Effacement Cervic Station Type Weight in lbs Pre/Post Dialysis Refused Weight 202.316410698994 BP Diastolic BP Location Tested BP Systolic BP Type 77 R arm 121 sitting Fetus Heart Rate Present A 155 Fetus Movement Comments this patient is a 32-year-ol d 2 para 0010 at 11 weeks and 6 days gestation who presents for initial care. She is vaccinated for COVID. She was given other vaccine recommendations. We talked about care in great detail. She will begin routine care Flowsheet Date 03/16/2023 Siu Score Blood Edema Fundus Height Fundus Units Glucose Ketones Leukocytes Nitrite Labor Signs Protein Cervic Dilation Cervic Effacement Cervic Station neg none none trace Type Weight in lbs Pre/Post Dialysis Refused Weight 204.929471524022 BP Diastolic BP Location Tested BP Systolic BP Type 78 124 Fetus Heart Rate Present A 145 Present Fetus Movement A Yes Comments patient is having some nause a. reviewed labs from last visit NIPT low risk, reviewed education and precautions, ok for pepcid and tums, f/u 4 weeks with anatomy Flowsheet Date 04/11/2023 Siu Score Blood Edema Fundus Height Fundus Units Glucose Ketones Leukocytes Nitrite Labor Signs Protein Cervic Dilation Cervic Effacement Cervic Station Type Weight in lbs Pre/Post Dialysis Refused BP Diastolic BP Location Tested BP Systolic BP Type Fetus Heart Rate Present Fetus Movement Comments Flowsheet Date 04/11/2023 Siu Score Blood Edema Fundus Height Fundus Units Glucose Ketones Leukocytes Nitrite Labor Signs Protein Cervic Dilation Cervic Effacement Cervic Station neg none none trace Type Weight in lbs Pre/Post Dialysis Refused Weight 203.18669188415 BP Diastolic BP Location Tested BP Systolic BP Type 67 105 Fetus Heart Rate Present Fetus Movement A Yes Comments patient states that having s ome BH contractions. anatomy incomplete, f/u in 4 weeks, precautions and education, had covid booster, planning flu, tdap and rsv when able. GERD very bothersome at hs, pepcid not really helping at all, precautions and education Flowsheet Date 05/09/2023 Siu Score Blood Edema Fundus Height Fundus Units Glucose Ketones Leukocytes Nitrite Labor Signs Protein Cervic Dilation Cervic Effacement Cervic Station Type Weight in lbs Pre/Post Dialysis Refused BP Diastolic BP Location Tested BP Systolic BP Type Fetus Heart Rate Present Fetus Movement Comments Flowsheet Date 05/09/2023 Sui Score Blood Edema Fundus Height Fundus Units Glucose Ketones Leukocytes Nitrite Labor Signs Protein Cervic Dilation Cervic Effacement Cervic Station neg none none trace Type Weight in lbs Pre/Post Dialysis Refused Weight 205.154994964733 BP Diastolic BP Location Tested BP Systolic BP Type 81 132 Fetus Heart Rate Present Fetus Movement A Yes Comments patient is having heartburn and contractions. anatomy complete, pepcid and tums working for heartburn, efw 82%, +FM, education and precautions, planning on flu vaccine, f/u 4 weeks with gct Flowsheet Date 06/06/2023 Siu Score Blood Edema Fundus Height Fundus Units Glucose Ketones Leukocytes Nitrite Labor Signs Protein Cervic Dilation Cervic Effacement Cervic Station neg none none trace Type Weight in lbs Pre/Post Dialysis Refused Weight 209.388405891801 BP Diastolic BP Location Tested BP Systolic BP Type 84 119 Fetus Heart Rate Present Fetus Movement A Yes Comments Patient is having pain, cont ractions and some pain with urination. will tx until receive culture, macrobid rx to pharmacy, ok for tdap, start 2 week visits, education and precautions, gct done Flowsheet Date 06/13/2023 Siu Score Blood Edema Fundus Height Fundus Units Glucose Ketones Leukocytes Nitrite Labor Signs Protein Cervic Dilation Cervic Effacement Cervic Station Type Weight in lbs Pre/Post Dialysis Refused BP Diastolic BP Location Tested BP Systolic BP Type Fetus Heart Rate Present Fetus Movement Comments Flowsheet Date 06/22/2023 Siu Score Blood Edema Fundus Height Fundus Units Glucose Ketones Leukocytes Nitrite Labor Signs Protein Cervic Dilation Cervic Effacement Cervic Station neg none 28 none trace Type Weight in lbs Pre/Post Dialysis Refused Weight 207.390067571402 BP Diastolic BP Location Tested BP Systolic BP Type 80 129 Fetus Heart Rate Present A 134 Fetus Movement A Yes Comments patient is having some contr actions. ptl precautions. reviewed blood sugars, improving will have rn call if next week fastings are still elevated will start insulin, reviewed risk of LGA, lung immaturity and , questions answered, planning tdap, us today Flowsheet Date 06/22/2023 Siu Score Blood Edema Fundus Height Fundus Units Glucose Ketones Leukocytes Nitrite Labor Signs Protein Cervic Dilation Cervic Effacement Cervic Station Type Weight in lbs Pre/Post Dialysis Refused BP Diastolic BP Location Tested BP Systolic BP Type Fetus Heart Rate Present Fetus Movement Comments Flowsheet Date 07/06/2023 Siu Score Blood Edema Fundus Height Fundus Units Glucose Ketones Leukocytes Nitrite Labor Signs Protein Cervic Dilation Cervic Effacement Cervic Station Type Weight in lbs Pre/Post Dialysis Refused BP Diastolic BP Location Tested BP Systolic BP Type Fetus Heart Rate Present Fetus Movement Comments Flowsheet Date 07/06/2023 Siu Score Blood Edema Fundus Height Fundus Units Glucose Ketones Leukocytes Nitrite Labor Signs Protein Cervic Dilation Cervic Effacement Cervic Station Type Weight in lbs Pre/Post Dialysis Refused BP Diastolic BP Location Tested BP Systolic BP Type Fetus Heart Rate Present Fetus Movement Comments Flowsheet Date 07/06/2023 Siu Score Blood Edema Fundus Height Fundus Units Glucose Ketones Leukocytes Nitrite Labor Signs Protein Cervic Dilation Cervic Effacement Cervic Station neg trace none trace Type Weight in lbs Pre/Post Dialysis Refused Weight 205.569687216635 BP Diastolic BP Location Tested BP Systolic BP Type 75 118 Fetus Heart Rate Present Fetus Movement A Yes Comments patient is having pain, cont ractions, and swelling. reviewed blood sugars, last week fastings elevated discussed starting insulin for blood sugar management, testing sheduled NST R, reviewed precautions, insulin teaching Flowsheet Date 07/06/2023 Siu Score Blood Edema Fundus Height Fundus Units Glucose Ketones Leukocytes Nitrite Labor Signs Protein Cervic Dilation Cervic Effacement Cervic Station Type Weight in lbs Pre/Post Dialysis Refused BP Diastolic BP Location Tested BP Systolic BP Type Fetus Heart Rate Present Fetus Movement Comments Flowsheet Date 07/11/2023 Siu Score Blood Edema Fundus Height Fundus Units Glucose Ketones Leukocytes Nitrite Labor Signs Protein Cervic Dilation Cervic Effacement Cervic Station Type Weight in lbs Pre/Post Dialysis Refused BP Diastolic BP Location Tested BP Systolic BP Type Fetus Heart Rate Present Fetus Movement Comments Flowsheet Date 07/11/2023 Siu Score Blood Edema Fundus Height Fundus Units Glucose Ketones Leukocytes Nitrite Labor Signs Protein Cervic Dilation Cervic Effacement Cervic Station Type Weight in lbs Pre/Post Dialysis Refused BP Diastolic BP Location Tested BP Systolic BP Type Fetus Heart Rate Present Fetus Movement Comments Flowsheet Date 07/11/2023 Siu Score Blood Edema Fundus Height Fundus Units Glucose Ketones Leukocytes Nitrite Labor Signs Protein Cervic Dilation Cervic Effacement Cervic Station neg none none trace Type Weight in lbs Pre/Post Dialysis Refused Weight 203.85543862367 BP Diastolic BP Location Tested BP Systolic BP Type 75 112 Fetus Heart Rate Present Fetus Movement A Yes Comments patient states that having s ome contractions. ptl precautions, call for preadmit, nph at hs, blood sugars are wnl continue, bpp 8/8 f/u one week Flowsheet Date 07/18/2023 Siu Score Blood Edema Fundus Height Fundus Units Glucose Ketones Leukocytes Nitrite Labor Signs Protein Cervic Dilation Cervic Effacement Cervic Station Type Weight in lbs Pre/Post Dialysis Refused BP Diastolic BP Location Tested BP Systolic BP Type Fetus Heart Rate Present Fetus Movement Comments Flowsheet Date 07/18/2023 Siu Score Blood Edema Fundus Height Fundus Units Glucose Ketones Leukocytes Nitrite Labor Signs Protein Cervic Dilation Cervic Effacement Cervic Station Type Weight in lbs Pre/Post Dialysis Refused BP Diastolic BP Location Tested BP Systolic BP Type Fetus Heart Rate Present Fetus Movement Comments Flowsheet Date 07/18/2023 Siu Score Blood Edema Fundus Height Fundus Units Glucose Ketones Leukocytes Nitrite Labor Signs Protein Cervic Dilation Cervic Effacement Cervic Station neg none none trace Type Weight in lbs Pre/Post Dialysis Refused Weight 206.123922704225 BP Diastolic BP Location Tested BP Systolic BP Type 77 123 Fetus Heart Rate Present Fetus Movement A Yes Comments patient states that having p ain. efw 80%, blood sugars all wnl cont nph at hs, sleeping well, preadmission scheduled. sees chiropractor, precautions reviewed f/u one week Flowsheet Date 07/25/2023 Siu Score Blood Edema Fundus Height Fundus Units Glucose Ketones Leukocytes Nitrite Labor Signs Protein Cervic Dilation Cervic Effacement Cervic Station Type Weight in lbs Pre/Post Dialysis Refused BP Diastolic BP Location Tested BP Systolic BP Type Fetus Heart Rate Present Fetus Movement Comments Flowsheet Date 07/25/2023 Siu Score Blood Edema Fundus Height Fundus Units Glucose Ketones Leukocytes Nitrite Labor Signs Protein Cervic Dilation Cervic Effacement Cervic Station Type Weight in lbs Pre/Post Dialysis Refused BP Diastolic BP Location Tested BP Systolic BP Type Fetus Heart Rate Present Fetus Movement Comments Flowsheet Date 07/25/2023 Siu Score Blood Edema Fundus Height Fundus Units Glucose Ketones Leukocytes Nitrite Labor Signs Protein Cervic Dilation Cervic Effacement Cervic Station neg none none trace Type Weight in lbs Pre/Post Dialysis Refused Weight 203.35030219245 BP Diastolic BP Location Tested BP Systolic BP Type 74 114 Fetus Heart Rate Present A 130 Fetus Movement A Yes Comments patient is having some BH co ntractions. No bleeding or cramping. Good movement. discussed kick counts. Blood sugars all within goal. Continue NPH. BPP 8/8. RTC 1 week. Flowsheet Date 08/01/2023 Siu Score Blood Edema Fundus Height Fundus Units Glucose Ketones Leukocytes Nitrite Labor Signs Protein Cervic Dilation Cervic Effacement Cervic Station Type Weight in lbs Pre/Post Dialysis Refused BP Diastolic BP Location Tested BP Systolic BP Type Fetus Heart Rate Present Fetus Movement Comments Flowsheet Date 08/01/2023 Siu Score Blood Edema Fundus Height Fundus Units Glucose Ketones Leukocytes Nitrite Labor Signs Protein Cervic Dilation Cervic Effacement Cervic Station Type Weight in lbs Pre/Post Dialysis Refused BP Diastolic BP Location Tested BP Systolic BP Type Fetus Heart Rate Present Fetus Movement Comments Flowsheet Date 08/01/2023 Siu Score Blood Edema Fundus Height Fundus Units Glucose Ketones Leukocytes Nitrite Labor Signs Protein Cervic Dilation Cervic Effacement Cervic Station neg none none trace Type Weight in lbs Pre/Post Dialysis Refused Weight 205.694566438952 BP Diastolic BP Location Tested BP Systolic BP Type 66 126 Fetus Heart Rate Present Fetus Movement A Yes Comments bpp 8/10, doing well, +FM, r eviewed blood sugars and wnl, f/u one week, gbs collected discussed IOL around 2, did not schedule f/u one week Flowsheet Date 08/08/2023 Siu Score Blood Edema Fundus Height Fundus Units Glucose Ketones Leukocytes Nitrite Labor Signs Protein Cervic Dilation Cervic Effacement Cervic Station Type Weight in lbs Pre/Post Dialysis Refused BP Diastolic BP Location Tested BP Systolic BP Type Fetus Heart Rate Present Fetus Movement Comments Flowsheet Date 08/08/2023 Siu Score Blood Edema Fundus Height Fundus Units Glucose Ketones Leukocytes Nitrite Labor Signs Protein Cervic Dilation Cervic Effacement Cervic Station Type Weight in lbs Pre/Post Dialysis Refused BP Diastolic BP Location Tested BP Systolic BP Type Fetus Heart Rate Present Fetus Movement Comments Flowsheet Date 08/08/2023 Siu Score Blood Edema Fundus Height Fundus Units Glucose Ketones Leukocytes Nitrite Labor Signs Protein Cervic Dilation Cervic Effacement Cervic Station neg none none trace 1cm 70% -3 Type Weight in lbs Pre/Post Dialysis Refused Weight 204.922242198600 BP Diastolic BP Location Tested BP Systolic BP Type 76 127 Fetus Heart Rate Present Fetus Movement A Yes Comments patient is having BH contrac tions. labor precautions, blood sugars ok, will send them in for review, will discuss IOL at next visit around 39 weeks, f/u one week precautions and educationrsv and tdap done Flowsheet Date 08/15/2023 Siu Score Blood Edema Fundus Height Fundus Units Glucose Ketones Leukocytes Nitrite Labor Signs Protein Cervic Dilation Cervic Effacement Cervic Station Type Weight in lbs Pre/Post Dialysis Refused BP Diastolic BP Location Tested BP Systolic BP Type Fetus Heart Rate Present Fetus Movement Comments Flowsheet Date 08/15/2023 Siu Score Blood Edema Fundus Height Fundus Units Glucose Ketones Leukocytes Nitrite Labor Signs Protein Cervic Dilation Cervic Effacement Cervic Station Type Weight in lbs Pre/Post Dialysis Refused BP Diastolic BP Location Tested BP Systolic BP Type Fetus Heart Rate Present Fetus Movement Comments Flowsheet Date 08/15/2023 Siu Score Blood Edema Fundus Height Fundus Units Glucose Ketones Leukocytes Nitrite Labor Signs Protein Cervic Dilation Cervic Effacement Cervic Station 1cm 70% -2 Type Weight in lbs Pre/Post Dialysis Refused Weight 205.006223964449 BP Diastolic BP Location Tested BP Systolic BP Type 75 117 Fetus Heart Rate Present Fetus Movement A Yes Comments blood sugars reviewed and wn l, glucose today, +FM, IOL scheduled 2 At 1700, doing well, education and precautions Flowsheet Date 08/22/2023 Siu Score Blood Edema Fundus Height Fundus Units Glucose Ketones Leukocytes Nitrite Labor Signs Protein Cervic Dilation Cervic Effacement Cervic Station Type Weight in lbs Pre/Post Dialysis Refused BP Diastolic BP Location Tested BP Systolic BP Type Fetus Heart Rate Present Fetus Movement Comments Flowsheet Date 08/22/2023 Siu Score Blood Edema Fundus Height Fundus Units Glucose Ketones Leukocytes Nitrite Labor Signs Protein Cervic Dilation Cervic Effacement Cervic Station Type Weight in lbs Pre/Post Dialysis Refused BP Diastolic BP Location Tested BP Systolic BP Type Fetus Heart Rate Present Fetus Movement Comments Flowsheet Date 08/22/2023 Siu Score Blood Edema Fundus Height Fundus Units Glucose Ketones Leukocytes Nitrite Labor Signs Protein Cervic Dilation Cervic Effacement Cervic Station neg none neg Type Weight in lbs Pre/Post Dialysis Refused Weight [id number] BP Diastolic BP Location Tested BP Systolic BP Type 71 115 Fetus Heart Rate Present Fetus Movement A Yes Comments patient is having contractio ns. declined cervical exam, precautions and education, IOL sunday blood sugars wnl, cont to monitor Menstrual History Last Menstrual Date Menses Monthly On Bcp Conception Prior Menses Frequency Hcg Plus Date Menarche Onset Age Genetic Screening And Infection History Question Response Note Mental Retardation/Autism false Patient's Age Will Be 35 Years Or Older At Estim ated Date of Delivery false Thalassemia (Bulgarian, Angolan, Mediterranean, Or Background): MCV < 80 false Neural Tube Defect (Meningomyelocele, Spina Bifi da, Or Anencephaly) false Congenital Heart Defect false Down Syndrome false Deandre-Sachs (eg, Hinduism, Cajun, Belarusian-Afghan) f alse Hilton Disease false Sickle Cell Disease Or Trait () false Hemophilia Or Other Blood Disorders false Muscular Dystrophy false Cystic Fibrosis false [place]'s Chorea false Intellectual Disability/Autism false If Yes, Was Person Tested For Fragile X? false Other Inherited Genetic Or Chromosomal Disorder false Maternal Metabolic Disorder (eg, Type 1 Diabetes , PKU) false Patient Or Baby's Father Had A Child With Defects Not Listed Above false Recurrent Loss, Or A Stillbirth false Medications (including Suppl ements, Vitamins, Herbs, OTC Drugs), Illicit/Recreational Drugs, Alcohol false If Yes, Agent(s) And Strength/Dosage false Any Other Genetic History false Live With Someone With TB Or Exposed To TB false Patient Or Partner Has History Of Genital Herpes false Rash Or Viral Illness Since Last Menstrual Perio d false History Of STD, Gonorrhea, Chlamydia, HPV, Syphi lis false Other Infection History false History of HIV false History of Hepatitis false Prior GBS-infected child false Hemoglobinopathy Or Carrier false Other Structural Defect false Recent Travel History Outside of Country false Delivery Information Delivery Date Delivery Type Labor Anesthesia Weeks Gestation Incision Type Labor Labor Length Hrs Delivered By Post Complications Tubal Sterilization Discharge Date Comments 4 Induce d Regional-Ep idural 39.2 false Keri Louis CNM obesity, gdm Discharge Information Feeding Method Contraceptive Method Maternal HG B and HCT Levels
--- NOTE | 2025-02-06 01:33 | P.PNAN_ITS ---
Anes - Eval Pre Procedure Procedure: Labor epidural Date/Time: 02/06/25 01:33 Surgeon: Ector Preop Diagnosis: Abdominal pain with contractions Pre Op Diagnosis: IOL Patient Data Age: 34 Gender: F Height: 1.55 m Weight: 96.81 kg Last Vital Signs O2 Del Method Room Air 02/06/25 00:27 Allergies Allergy/AdvReac Type Severity Reaction Status Date / Time [facility] Allergy Hives Verified 02/06/25 00:17 codeine Allergy Hives Verified 02/06/25 00:17 Home Medications ?Medication ?Instructions ?Recorded ?Confirmed ?Type ferrous sulfate 325 mg (65 mg 325 mg PO DAILY 08/03/23 01/14/25 History iron) tablet prenat.vits,edgardo,[id number] 1 tablet PO DAILY 08/03/23 01/14/25 History pantoprazole 20 mg tablet,delayed 20 mg PO DAILY 01/14/25 01/14/25 History release Laboratory Tests 02/06/25 00:46 WBC Pending RBC Pending Hgb Pending Hct Pending MCV Pending MCH Pending MCHC Pending RDW Pending Plt Count Pending MPV Pending Immature Gran % (Auto) Pending Neut % (Auto) Pending Lymph % (Auto) Pending Dodge % (Auto) Pending Eos % (Auto) Pending Baso % (Auto) Pending Lymph # (Auto) Pending Dodge # (Auto) Pending Eos # (Auto) Pending Baso # (Auto) Pending Abs Immat Gran (auto) Pending Absolute Neuts (auto) Pending Absolute Nucleated RBC Pending Nucleated RBC % Pending Sodium Pending Potassium Pending Chloride Pending Carbon Dioxide Pending Anion Gap Pending BUN Pending Creatinine Pending Estim Creat Clear Calc Pending Estimated GFR Pending Glucose Pending Calcium Pending Total Bilirubin Pending AST Pending ALT Pending Alkaline Phosphatase Pending Total Protein Pending Albumin Pending : gestational age HCG: positive Patient hx anesthesia problems: none Family hx anesthesia problems: none Results Review: All pre-operative results and documents have been reviewed as part of the pre- operative evaluation. FOR[facility], [facility] Past Medical History Medical History LGA (large for gestational age) fetus Anemia Obesity (BMI 30-39.9) Gestational diabetes Family History Family History Sibling Lymphoma Sibling Congenital heart defect Grandparent Diabetes mellitus Social History Social History Smoking status: Never smoker Second hand tobacco smoke exposure: No Substance use: never Do You Feel Safe in your Home?: Yes Lack of Transportation: No Lack of Food: Never True Current Housing: I Have Housing Concerned About Future Housing: No Difficulty Paying Gas/Electric Bills: No Difficulty Paying for Meds: No Currently Unemployed: No Education: Bachelor's Degree Difficulty w/ Childcare or Family Care: No Spiritual care concerns: No Exam Day of Procedure 02/06/25 01:33 Patient weight: morbidly obese Airway: Mallampati scale class II
[2025-02-06 01:39] LABS: Hematocrit 30.2 % (37.0-47.0); Hemoglobin 9.1 g/dL (12.0-15.0); Immature Granulocyte Percent A 1.0 % (0-0.5); Lymphocytes Absolute Auto 1.86 K/mm3 (0.9-3.2); Mean Corpuscular HGB Conc 30.1 g/dl (32-36); Mean Corpuscular Hemoglobin 24.1 pg (26-34); Mean Corpuscular Volume 80.1 fl (80-100); Nucleated Red Blood Cells Absolute Auto 0.020 K/mm3 (0.0-0.012); Nucleated Red Blood Cells Perc 0.1 % (0.0-0.2); Platelet Count Result 202 k/mm3 (150-375); Red Blood Count 3.77 M/mm3 (4.2-5.4); White Blood Count 13.4 K/mm3 (4.5-10.0)
[2025-02-06 01:41] LABS: Alanine Aminotransferase 15 U/L (6-35); Albumin Level 3.0 g/dL (3.5-5.1); Alkaline Phosphatase 148 U/L (38-126); Anion Gap 7 mmol/L (4-12); Aspartate Amino Transferase 23 U/L (14-36); Bilirubin,Total 0.2 mg/dL (0.2-1.3); Blood Urea Nitrogen 9 mg/dL (7-17); Calcium 9.0 mg/dL (8.4-10.2); Carbon Dioxide 18 mmol/L (22-30); Chloride 109 mmol/L (98-107); Estimated CRCL calculation 119 ml/min; Estimated Glomerular Filt Rate > 60; Glucose 84 mg/dL (65-110); Potassium 3.7 mmol/L (3.4-5.0); Sodium 134 mmol/L (137-145); Total Protein 5.8 g/dL (6.3-8.2)
[2025-02-06] MEDS: LACTATED RINGERS 1,000 ML 125 ML IV CONT (06:11)
[2025-02-06] MEDS: OXYTOCIN 30 UNITS/NS 500 ML 30 UNITS/500 ML BAG IV CONT (06:12)
--- NOTE | 2025-02-06 06:37 | WPDOBADMIT ---
Obstetrics - Admit Note Admission Note: record reviewed. No pertinent additions to the history and/or any subsequent changes in the physical findings that are not consistent with the expected course of the were found. Additions to the history and/or subsequent changes in the physical findings follow. Admit for IOL, SVE /-2 AROM clear fluid anticipate vaginal delivery
[2025-02-06 06:43] LABS: Syphilis IgG/IgM Antibody Non-Reactive (Nonreactive)
--- NOTE | 2025-02-06 10:27 | P.PCNOB_ITS ---
OB - Vaginal Delivery Note Procedure Delivery date: 02/06/25 Induction method: AROM, Per Misoprostol Protocol and Per Pitocin Protocol Delivery monitor: External FHT and External Uterine Route of delivery: Laceration Description: Perineal - 1st Degree Delivery repair: vicryl [place] Baby Date of : 02/06/25 Time of : 10:18 Gestational Age by Date: 39 gender: Female presentation: vertex position: Left Occiput Anterior Placenta delivery description: Spontaneous and Expressed Cord Vessel Description: 3 Vessels, Clamped/Cut and Delayed Cord Clamping
[2025-02-06] MEDS: OXYTOCIN 30 UNITS/NS 500 ML 30 UNITS/500 ML BAG 125 UNITS IV CONT (10:56)
--- NOTE | 2025-02-06 13:44 | OBPPTRN ---
Patient transferred to post room # 282 via wheelchair. Support person present. Oriented to unit, room, information board, rooming in, admission packet and security measures. Patient verbalizes understanding.
--- NOTE | 2025-02-06 14:30 | PC.NURSE ---
Breast pump provided due to maternal preference to pump and bottle feed. Instructions given on cleaning, care, usage, that there should be no pain, pumping schedule for milk production, collection, and storage of human milk. Patient was advised to pump for stimulation for adequate milk production every 3 hours (8 times in 24 hours) 1-2 times at night. She pumped with her last child. She has a Medela pump for home use.?Mother voiced understanding of the education shared along with mom/baby guide for additional resource information. Reported to the Primary RN.
[2025-02-06] MEDS: IBUPROFEN 600 MG TABLET PO (14:38)
[2025-02-06] MEDS: DOCUSATE SODIUM 100 MG CAPSULE PO (16:25)
--- NOTE | 2025-02-06 17:30 | PC.NURSE ---
Checked in with patient to see if pumping is going okay. She had not had a pumping session yet but was ready to start. Patient placed the flanges and was shown how to use the Initiation setting on the pump. She denies pain or discomfort. She is counseled to use the highest comfortable suction setting. We reviewed use and storage of breast milk including mixing small volumes with formula and using a clean finger to give drops to baby. Mom states understanding of the information shared and doesn't have further questions at this time. RN updated.
[2025-02-07] MEDS: ACETAMINOPHEN 325 MG TABLET 650 MG PO ×2 (03:52→10:13)
[2025-02-07] MEDS: IBUPROFEN 600 MG TABLET PO ×2 (03:53→10:13)
[2025-02-07 05:01] VITALS: BP 114/54; PULSE 67; RESP 14; TEMP 36.6; O2SAT 100
[2025-02-07 05:02] LABS: Hematocrit 26.4 % (37.0-47.0); Hemoglobin 7.6 g/dL (12.0-15.0)
[2025-02-07 08:17] VITALS: BP 123/71; PULSE 82; RESP 18; TEMP 36.4; O2SAT 98
[2025-02-07] MEDS: DOCUSATE SODIUM 100 MG CAPSULE PO (10:13)
[2025-02-07] MEDS: MULTIVIT/MIN/PREN/FOL AC/IRON TABLET 1 TAB PO (10:13)
[2025-02-07] MEDS: TETANUS,DIPHTHERIA,AC PERTUSSIS ADULT (0.5 ML) BOOSTRIX IM (10:13)
--- NOTE | 2025-02-07 10:53 | P.PNOB_ITS ---
OB - PN: Subj Subjective Date/time seen: 02/07/25 10:53 Patient comments: no complaints, pain well controlled, incisional pain, tolerating diet and flatus present OB - PN: Obj Data Labs 02/07/25 04:52 02/06/25 00:46 Labs: Laboratory Results - last 24 hr 02/07/25 04:52 Hgb 7.6 L Hct 26.4 L OB - PN A/P Plan day: 1 Plan: routine care Comments: No problems, routine care Time Spent With Patient Time: Total time spent is greater than 50% in coordination of care (as documented) at patient's floor/unit and/or counseling patient: Exam 2 Const: General: comfortable, no acute distress and alert Resp: Effort & Inspection: normal respiratory effort Auscultation: no crackles, no rales and no rhonchi Cardio: Rate: regular rate Heart sounds: no click, no murmurs and no rubs GI: Inspection: non-distended GI Palp: No Tenderness to palpation present (GI) Auscultation: normal bowel sounds Other: Incision - CDI Extrem: General: normal to inspection, no pedal edema and no calf tenderness
--- NOTE | 2025-02-07 10:54 | PM.OBDSVD ---
DS: Admitting Diagnosis Discharge Date 02/07/25 Admitting Diagnosis term DS: Discharge Diagnosis Discharge Diagnosis (1) Vaginal delivery: Code(s): O80 - Encounter for full-term uncomplicated delivery Status: Acute OB - DS: Summary OB Procedures : None OB Procedures Intrapartum: Spontaneous Vag Delivery OB Procedures: : None Peripartum Data Laceration Description: Perineal - 1st Degree Time Spent with Patient Time attestation: Total time spent providing and/or coordinating discharge services: DS: Data Data Completed and Pending Labs on day of discharge: Labs from last 24 hours 02/07/25 04:52 Hgb 7.6 L Hct 26.4 L Discharge Plan Discharge Discharging Clinician: Brigido Barney Patient Disposition: Home Activity: pelvic rest Diet: regular Patient Instructions: Antibiotic Form Patient Language: German Stand Alone Forms: General Discharge Information Follow-up/Referrals: Brigido Barney MD [Physician] - Discharge Medications: Continued ferrous sulfate 325 mg (65 mg iron) Tablet 325 mg PO DAILY prenat.vits,edgardo,[id number] Tablet 1 tablet PO DAILY pantoprazole 20 mg tablet,delayed release (DR/EC) 20 mg PO DAILY Date of admission: 02/06/25 00:10 Primary Care Provider: Harmony Miles Admitting Provider: Brigido Barney Attending physician on admission: Brigido Barney Condition: Stable
[2025-02-10 11:34] VITALS: BP 127/75; PULSE 83; RESP 18; TEMP 36.6; O2SAT 100
== END 2025-02-07 12:55 | disposition home or self-care (01) | DRG 807 ==
LOC: ANHLDR 00:13 → ANHOB2 13:46
PROVIDERS: Advanced Practice Midwife; Admitting Provider Obstetrics & Gynecology; Visit Provider Obstetrics & Gynecology
DX: O24.429 Gestational diabetes mellitus in childbirth, unspecified control (principal); Z37.0 Single live birth; Z3A.39 39 weeks gestation of pregnancy; O70.0 First degree perineal laceration during delivery; O43.113 Circumvallate placenta, third trimester
CPT/HCPCS: 36415; 80053; 82948; 85014; 85018; 85025; 86593; 86850; 86900; 86901; 90715; A9270; J2590; J2795; J7120